=== PATIENT | female | born 1930 | race Caucasian/White ===

== ENCOUNTER → 2017-08-02 | Outpatient (CLI) | payer MEDICARE, BC ==
--- NOTE | 2017-08-02 15:20 | XR ---
EXAMINATION TYPE: XR ankle complete RT DATE OF EXAM: 08/02/2017 COMPARISON: NONE HISTORY: Pain, swelling, bruising TECHNIQUE: Three-view right ankle FINDINGS: Soft tissue swelling is over the medial malleolus. Ankle mortise appears intact. No displac ed fractures are identified. Plantar and Achilles tendon calcaneal heel spurs are present. IMPRESSION: 1. Soft tissue swelling medial malleolus. 2. Calcaneal heel spurs. 3. Follow-up exam can be performed 7-10 days from acute trauma for continued pain.
== END | disposition home or self-care (01) ==
LOC: RADXRMAIN 14:44
PROVIDERS: ATTEND Internal Medicine Geriatric Medicine
DX: M77.31 Calcaneal spur, right foot (principal); M79.89 Other specified soft tissue disorders

== ENCOUNTER 2019-03-31 09:52 | Emergency (ER) | payer MEDICARE, BC ==
[2019-03-31 10:03] VITALS: PULSE 60; RESP 18
[2019-03-31 10:25] LABS: Basophils % (A) 0 %; Eosinophils # (A) 0.2 k/uL (0-0.7); Eosinophils % (A) 1 %; HCT 39.5 % (34.0-46.0); Lymphocytes # (A) 0.8 k/uL (1.0-4.8); Lymphocytes % (A) 5 %; MCH 30.5 pg (25.0-35.0); MCV 92.3 fL (80.0-100.0); Mean Platelet Volume 7.2; Monocytes # (A) 0.9 k/uL (0-1.0); Monocytes % (A) 5 %; Neutrophils # (A) 14.3 k/uL (1.3-7.7); Neutrophils % (A) 87 %; Platelet Count 201 k/uL (150-450); RBC 4.28 m/uL (3.80-5.40); RDW 13.6 % (11.5-15.5); WBC 16.4 k/uL (3.8-10.6)
--- NOTE | 2019-03-31 10:30 | ED ---
General Adult HPI - General Chief complaint: Extremity Problem,Nontraumatic Stated complaint: RT HIP PAIN Time Seen by Provider: 03/31/19 10:03 Source: patient, RN notes reviewed, old records reviewed Mode of arrival: EMS Limitations: physical limitation - History of Present Illness Initial comments: 88-year-old female presenting for evaluation of right buttock pain and low back pain and pain shooting into her right leg. Patient states she was quite active 2 days prior with more walking than usual. She denies any specific injury but states she did develop some worsening pain after overuse. This pain has persisted for the past 24 hours. Worse with movement of the right leg worse with standing. She has no previous history of chronic back pain. No fever or chills. Denies any bowel incontinence denies urinary retention or urinary incontinence. Patient denies any symptoms below the knee. No numbness or tingling to the right extremity. Denies hematuria or dysuria denies flank pain. - Related Data Home Medications Medication Instructions Recorded Confirmed Albuterol Sulfate [Ventolin HFA] 1 puff INHALATION RT-QID PRN 09/23/14 03/31/19 Oxybutynin Chloride [Oxybutynin 10 mg PO DAILY 09/23/14 03/31/19 Chloride ER] Albuterol Nebulized [Ventolin 2.5 mg INHALATION RT-Q6H PRN 03/31/19 03/31/19 Nebulized] Atenolol [Tenormin] 50 mg PO DAILY 03/31/19 03/31/19 Previous Rx's Medication Instructions Recorded HYDROcodone/APAP 5-325MG [[place] 1 tab PO Q6HR PRN #12 tab 03/31/19 5-325] Nitrofurantoin Monohyd/M-Cryst 100 mg PO Q12HR #20 cap 03/31/19 [Macrobid] methylPREDNISolone Dose Pack 4 mg PO DIRECTED #21 package 03/31/19 [Medrol Dose Pack] Allergies Allergy/AdvReac Type Severity Reaction Status Date / Time Egg Derived Allergy Rash/Hives Verified 03/31/19 10:26 gabapentin Allergy Rash/Hives Verified 03/31/19 10:26 Penicillins Allergy Rash/Hives Verified 03/31/19 10:26 shellfish derived Allergy Chest Pain Verified 03/31/19 10:26 sulfamethoxazole Allergy Rash/Hives Verified 03/31/19 10:26 [From Bactrim] trimethoprim [From Bactrim] Allergy Rash/Hives Verified 03/31/19 10:26 Review of Systems ROS Statement: Those systems with pertinent positive or pertinent negative responses have been documented in the HPI. ROS Other: All systems not noted in ROS Statement are negative. Past Medical History Past Medical History: Asthma, CVA/TIA, GERD/Reflux, Hypertension, Pneumonia Additional Past Medical History / Comment(s): , History of Any Multi-Drug Resistant Organisms: None Reported Past Surgical History: Cholecystectomy, Hysterectomy Additional Past Surgical History / Comment(s): HAS CHRONIC ULCERATION IN BLADDER, colonoscopy 2006 biopsy for rectal bleed Past Anesthesia/Blood Transfusion Reactions: No Reported Reaction Past Psychological History: No Psychological Hx Reported Smoking Status: Never smoker Past Alcohol Use History: None Reported Past Drug Use History: None Reported General Exam Limitations: physical limitation General appearance: alert, in no apparent distress Head exam: Present: atraumatic, normocephalic Eye exam: Present: normal appearance, PERRL ENT exam: Present: normal exam Neck exam: Present: normal inspection. Absent: tenderness, meningismus Respiratory exam: Present: normal lung sounds bilaterally. Absent: respiratory distress, wheezes Cardiovascular Exam: Present: regular rate, normal rhythm GI/Abdominal exam: Present: soft. Absent: distended, tenderness, guarding, rebound Extremities exam: Present: normal inspection, other (DP and PT pulse 2+). Absent: pedal edema, calf tenderness Back exam: Present: normal inspection, paraspinal tenderness (Right lumbar paraspinal tenderness). Absent: vertebral tenderness Neurological exam: Present: alert, CN II-XII intact. Absent: motor sensory deficit Skin exam: Present: warm, dry, intact, normal color. Absent: rash, cyanosis, diaphoretic Course Vital Signs 03/31/19 09:55 Temperature 98.0 F Pulse Rate 60 Respiratory 18 Rate Blood Pressure 92/65 O2 Sat by Pulse 91 L Oximetry Medical Decision Making - Medical Decision Making 88-year-old female presents with low back pain and right hip pain status post overuse and long walk. Patient's symptoms are consistent with sciatic pain with pain shooting down her right leg. She has no alarming features on history or physical exam. X-rays are obtained, consistent with arthritis, disc height is maintained, no acute fracture or subluxation the lumbars sacral spine. Hip x- ray is negative for any acute bony abnormality. Patient has a normal pulse exam. Abdominal exam is unremarkable. Laboratory studies were obtained there is leukocytosis with a white blood cell count 16.4 hemoglobin stable creatinine 1.16 which is mildly elevated. Patient's given fentanyl by EMS prior to arrival, given IV fluids and Toradol in the emergency department. She does have significant improvement in her pain. Urinalysis is consistent with urinary tract infection, greater than 182 white cells and many bacteria. Urine culture will be obtained patient will be started on antibiotics for cystitis and urinary tract infection. Patient is feeling better and eager for discharge. She has an appointment on Tuesday which is 2 days from now with her primary care physician. She will be present with worsening or changing symptoms. - Lab Data Result diagrams: 03/31/19 10:13 03/31/19 10:13 Lab Results 03/31/19 03/31/19 03/31/19 Range/Units 10:13 10:13 11:49 WBC 16.4 H (3.8-10.6) k/uL RBC 4.28 (3.80-5.40) m/uL Hgb 13.0 (11.4-16.0) gm/dL Hct 39.5 (34.0-46.0) % MCV 92.3 (80.0-100.0) fL MCH 30.5 (25.0-35.0) pg MCHC 33.0 (31.0-37.0) g/dL RDW 13.6 (11.5-15.5) % Plt Count 201 (150-450) k/uL Neutrophils % 87 % Lymphocytes % 5 % Monocytes % 5 % Eosinophils % 1 % Basophils % 0 % Neutrophils # 14.3 H (1.3-7.7) k/uL Lymphocytes # 0.8 L (1.0-4.8) k/uL Monocytes # 0.9 (0-1.0) k/uL Eosinophils # 0.2 (0-0.7) k/uL Basophils # 0.0 (0-0.2) k/uL Sodium 138 (137-145) mmol/L Potassium 4.2 (3.5-5.1) mmol/L Chloride 105 (98-107) mmol/L Carbon Dioxide 24 (22-30) mmol/L Anion Gap 9 mmol/L BUN 22 H (7-17) mg/dL Creatinine 1.16 H (0.52-1.04) mg/dL Est GFR (CKD-EPI)AfAm 48 (>60 ml/min/1.73 sqM) Est GFR (CKD-EPI)NonAf 42 (>60 ml/min/1.73 sqM) Glucose 112 H (74-99) mg/dL Calcium 9.2 (8.4-10.2) mg/dL Total Bilirubin 1.4 H (0.2-1.3) mg/dL AST 21 (14-36) U/L ALT 25 (9-52) U/L Alkaline Phosphatase 79 (38-126) U/L Total Protein 6.7 (6.3-8.2) g/dL Albumin 3.6 (3.5-5.0) g/dL Urine Color Yellow Urine Appearance Cloudy H (Clear) Urine pH 6.0 (5.0-8.0) Ur Specific Mcdonald 1.016 (1.001-1.035) Urine Protein 1+ H (Negative) Urine Glucose (UA) Negative (Negative) Urine Ketones 1+ H (Negative) Urine Blood Small H (Negative) Urine Nitrite Negative (Negative) Urine Bilirubin Negative (Negative) Urine Urobilinogen <2.0 (<2.0) mg/dL Ur Leukocyte Esterase Large H (Negative) Urine RBC 4 (0-5) /hpf Urine WBC >182 H (0-5) /hpf Urine WBC Clumps Many H (None) /hpf Ur Squamous Epith Cells 1 (0-4) /hpf Amorphous Sediment Rare H (None) /hpf Urine Bacteria Many H (None) /hpf Hyaline Casts 4 H (0-2) /lpf Urine Mucus Rare H (None) /hpf Disposition Clinical Impression: Sciatica, UTI (urinary tract infection) Disposition: HOME SELF-CARE Condition: Good Instructions (If sedation given, give patient instructions): Sciatica (ED), Lumbar Radiculopathy (ED), Lower Back Exercises (ED), Urinary Tract Infection in Women (ED) Prescriptions: Nitrofurantoin Monohyd/M-Cryst [Macrobid] 100 mg PO Q12HR #20 cap methylPREDNISolone Dose Pack [Medrol Dose Pack] 4 mg PO DIRECTED #21 package HYDROcodone/APAP 5-325MG [[place] 5-325] 1 tab PO Q6HR PRN #12 tab PRN Reason: Pain Is patient prescribed a controlled substance at d/c from ED?: No Referrals: Samuel Bagley MD [Primary Care Provider] - 1-2 days Time of Disposition: 12:35
[2019-03-31 10:33] LABS: Albumin 3.6 g/dL (3.5-5.0); Calcium 9.2 mg/dL (8.4-10.2); Potassium 4.2 mmol/L (3.5-5.1); Total Bilirubin 1.4 mg/dL (0.2-1.3); Total Protein 6.7 g/dL (6.3-8.2)
--- NOTE | 2019-03-31 10:46 | XR ---
EXAMINATION TYPE: XR Hip Complete RT , 2 VIEWS DATE OF EXAM ORDERED: 03/31/2019 HISTORY: Pain. COMPARISON: None. FINDINGS: There are mild degenerative changes present within the hip. There is evidence of enthesopa thy arising from the iliac crest. No fracture or dislocation is seen. IMPRESSION: 1. NO ACUTE OSSEOUS ABNORMALITY. 2. DEGENERATIVE CHANGE.
[2019-03-31] MEDS ORDERED: KETOROLAC 30 MG/ML 1 ML VIAL IVP STA (10:47)
--- NOTE | 2019-03-31 10:48 | XR ---
EXAMINATION TYPE: XR lumbosacral spine min 4V , 5 VIEWS DATE OF EXAM ORDERED: 03/31/2019 HISTORY: Pain. COMPARISON: None. FINDINGS: There is a mild dextroscoliosis. Vertebral body height is maintained. There is a degenerative grade 1 spondylolisthesis of L5 on S1. N o fractures are identified. This hypertrophic spondylosis present. This is most marked at T11-12, L1- 2 and L2-3. There is mild, diffuse facet arthropathy. The pedicles are intact. There is very mild spo ndylosis deformans. IMPRESSION: 1. NO ACUTE OSSEOUS LESION. 2. MODERATE DEGENERATIVE CHANGE.
[2019-03-31] MEDS ORDERED: SODIUM CHLORIDE 0.9% 500 ML 500 ML IV ONE (10:53)
[2019-03-31 12:58] LABS: Amorphous Sediment,Urine Rare /hpf; Appearance,Urine Cloudy (Clear); Bacteria,Urine Many /hpf; Bilirubin,Urine Negative (Negative); Blood,Urine Small (Negative); Color,Urine Yellow; Glucose,Urine (UA) Negative (Negative); Hyaline Casts,Urine 4 /lpf (0-2); Ketones,Urine 1+ (Negative); Leukocyte Esterase,Urine Large (Negative); Mucus,Urine Rare /hpf; Nitrite,Urine Negative (Negative); Protein,Urine 1+ (Negative); RBC,Urine 4 /hpf (0-5); Specific Gravity,Urine 1.016 (1.001-1.035); Squamous Epithelial Cell,Urine 1 /hpf (0-4); Urobilinogen,Urine <2.0 mg/dL (<2.0); WBC,Urine >182 /hpf (0-5)
[2019-03-31 13:11] VITALS: BP 122/57
[2019-03-31 13:24] VITALS: TEMP 98.2
== END 2019-03-31 13:23 | disposition home or self-care (01) ==
LOC: EC 09:52
DX: N39.0 Urinary tract infection, site not specified (principal); M54.41 Lumbago with sciatica, right side; J45.909 Unspecified asthma, uncomplicated; I10 Essential (primary) hypertension; Z86.73 Personal history of transient ischemic attack (TIA), and cerebral infarction without residual deficits; Z79.899 Other long term (current) drug therapy; Z88.0 Allergy status to penicillin; Z91.012 Allergy to eggs; Z91.013 Allergy to seafood; Z88.1 Allergy status to other antibiotic agents; Z88.2 Allergy status to sulfonamides; Z88.8 Allergy status to other drugs, medicaments and biological substances; Z90.710 Acquired absence of both cervix and uterus
CPT/HCPCS: 36415; 80053; 85025; 81001; 87086; 72110; 73502; 99284; 96374; 96361; J1885; 87077; 87186

== ENCOUNTER 2019-04-02 14:13 | Inpatient (IN) | payer MEDICARE, BC ==
[2019-04-02] MEDS ORDERED: IPRATROPIUM 0.5 MG/2.5 ML NEBU INHALATION STA (14:30)
[2019-04-02] MEDS ORDERED: ALBUTEROL NEBULIZED 2.5 MG/3 ML INHALATION STA (14:30)
[2019-04-02] MEDS ORDERED: SODIUM CHLORIDE 0.9% 500 ML 500 ML IV STA (14:30)
[2019-04-02] MEDS ORDERED: AZITHROMYCIN 500 MG in SODIUM CHLORIDE 0.9% 250 ML IVPB STA (14:30)
[2019-04-02] MEDS ORDERED: SODIUM CHLORIDE 0.9% 1,000 ML IV STA (14:30)
--- NOTE | 2019-04-02 14:31 | ED ---
SOB HPI - General Chief Complaint: Shortness of Breath Stated Complaint: SOB Time Seen by Provider: 04/02/19 14:21 Source: patient, RN notes reviewed, old records reviewed Mode of arrival: wheelchair Limitations: no limitations - History of Present Illness Initial Comments: This is an 88-year-old female the ER for evaluation presents today for evaluatio n regards to shortness of breath. Patient does have history of shortness of breath difficulty breathing here in the ER 3 days ago for same she does have strong history of asthma. Patient was seen by primary care earlier in the day and urged to come to the ER for evaluation. Patient denies pain or chest pain. No fever or congestion. She does admit to increased cough. Increased shortness of breath. MD Complaint: shortness of breath, cough -: days(s) (3) Severity: mild Severity scale (1-10): 2 Consistency: constant Improves With: oxygen, bronchodilators Worsens With: exertion, movement Known History Of: COPD, asthma Context: recent URI Associated Symptoms: pain with inspiration, cough - Related Data Home Medications Medication Instructions Recorded Confirmed Albuterol Sulfate [Ventolin HFA] 1 puff INHALATION RT-QID PRN 09/23/14 04/02/19 Oxybutynin Chloride [Oxybutynin 10 mg PO DAILY 09/23/14 04/02/19 Chloride ER] Albuterol Nebulized [Ventolin 2.5 mg INHALATION RT-Q6H PRN 03/31/19 04/02/19 Nebulized] Atenolol [Tenormin] 50 mg PO DAILY 03/31/19 04/02/19 Ergocalciferol (Vitamin D2) 50,000 unit PO Q14D 04/02/19 04/02/19 [Drisdol] Omeprazole 20 mg PO DAILY 04/02/19 04/02/19 methylPREDNISolone Dose Pack See Taper PO DIRECTED 04/02/19 04/02/19 [Medrol Dose Pack] Previous Rx's Medication Instructions Recorded HYDROcodone/APAP 5-325MG [[place] 1 tab PO Q6HR PRN #12 tab 03/31/19 5-325] Nitrofurantoin Monohyd/M-Cryst 100 mg PO Q12HR #20 cap 03/31/19 [Macrobid] Allergies Allergy/AdvReac Type Severity Reaction Status Date / Time Egg Derived Allergy Rash/Hives Verified 04/02/19 14:25 gabapentin Allergy Rash/Hives Verified 04/02/19 14:25 peanut Allergy Rash/Hives Verified 04/02/19 15:15 Penicillins Allergy Rash/Hives Verified 04/02/19 14:25 shellfish derived Allergy Chest Pain Verified 04/02/19 14:25 sulfamethoxazole Allergy Rash/Hives Verified 04/02/19 14:25 [From Bactrim] tomato Allergy Rash/Hives Verified 04/02/19 15:15 trimethoprim [From Bactrim] Allergy Rash/Hives Verified 04/02/19 14:25 Review of Systems ROS Statement: Those systems with pertinent positive or pertinent negative responses have been documented in the HPI. ROS Other: All systems not noted in ROS Statement are negative. Past Medical History Past Medical History: Asthma, CVA/TIA, GERD/Reflux, Hypertension, Pneumonia Additional Past Medical History / Comment(s): , History of Any Multi-Drug Resistant Organisms: None Reported Past Surgical History: Cholecystectomy, Hysterectomy Additional Past Surgical History / Comment(s): HAS CHRONIC ULCERATION IN BLADDER, colonoscopy 2006 biopsy for rectal bleed Past Anesthesia/Blood Transfusion Reactions: No Reported Reaction Past Psychological History: No Psychological Hx Reported Smoking Status: Never smoker Past Alcohol Use History: None Reported Past Drug Use History: None Reported General Exam Limitations: no limitations General appearance: alert, in no apparent distress Head exam: Present: atraumatic, normocephalic, normal inspection Eye exam: Present: normal appearance, PERRL, EOMI. Absent: scleral icterus, conjunctival injection, periorbital swelling ENT exam: Present: normal exam, mucous membranes moist Neck exam: Present: normal inspection. Absent: tenderness, meningismus, lymphadenopathy Respiratory exam: Present: normal lung sounds bilaterally, wheezes, decreased breath sounds, prolonged expiratory. Absent: respiratory distress, rales, rhonchi, stridor Cardiovascular Exam: Present: regular rate, normal rhythm, normal heart sounds. Absent: systolic murmur, diastolic murmur, rubs, gallop, clicks GI/Abdominal exam: Present: soft, normal bowel sounds. Absent: distended, tenderness, guarding, rebound, rigid Extremities exam: Present: normal inspection, full ROM, normal capillary refill. Absent: tenderness, pedal edema, joint swelling, calf tenderness Back exam: Present: normal inspection Neurological exam: Present: alert, oriented X3, CN II-XII intact Psychiatric exam: Present: normal affect, normal mood Skin exam: Present: warm, dry, intact, normal color. Absent: rash Course Vital Signs 04/02/19 04/02/19 04/02/19 14:22 15:34 15:47 Temperature 98.4 F Pulse Rate 60 60 56 L Respiratory 20 Rate Blood Pressure 137/62 O2 Sat by Pulse 90 L Oximetry 04/02/19 04/02/19 04/02/19 16:03 16:19 16:47 Temperature Pulse Rate 59 L 68 69 Respiratory 24 20 Rate Blood Pressure 125/54 105/58 O2 Sat by Pulse 97 90 L Oximetry - Reevaluation(s) Reevaluation #1: 04/02/19 16:49 Medical record reviewed Reevaluation #2: 04/02/19 16:[address] Bagley regarding transfer patient for inpatient admission. Reevaluation #3: 04/02/19 16:49 Patient placed on heparin to elevated d-dimer hypoxia, will await computed tomography scan the morning secondary to inability to get CAT scan increased renal function Medical Decision Making - Lab Data Result diagrams: 04/02/19 15:10 04/02/19 15:10 Lab Results 04/02/19 04/02/19 04/02/19 Range/Units 15:10 15:10 15:10 WBC 17.6 H (3.8-10.6) k/uL RBC 4.46 (3.80-5.40) m/uL Hgb 13.2 (11.4-16.0) gm/dL Hct 42.0 (34.0-46.0) % MCV 94.1 (80.0-100.0) fL MCH 29.5 (25.0-35.0) pg MCHC 31.4 (31.0-37.0) g/dL RDW 13.6 (11.5-15.5) % Plt Count 279 (150-450) k/uL Neutrophils % 85 % Lymphocytes % 6 % Monocytes % 6 % Eosinophils % 1 % Basophils % 0 % Neutrophils # 15.0 H (1.3-7.7) k/uL Lymphocytes # 1.0 (1.0-4.8) k/uL Monocytes # 1.1 H (0-1.0) k/uL Eosinophils # 0.1 (0-0.7) k/uL Basophils # 0.1 (0-0.2) k/uL PT 9.9 (9.0-12.0) sec INR 0.9 (<1.2) APTT 23.2 (22.0-30.0) sec D-Dimer 2.10 H (<0.60) mg/L FEU Sodium 138 (137-145) mmol/L Potassium 4.1 (3.5-5.1) mmol/L Chloride 102 (98-107) mmol/L Carbon Dioxide 25 (22-30) mmol/L Anion Gap 11 mmol/L BUN 28 H (7-17) mg/dL Creatinine 1.35 H (0.52-1.04) mg/dL Est GFR (CKD-EPI)AfAm 40 (>60 ml/min/1.73 sqM) Est GFR (CKD-EPI)NonAf 35 (>60 ml/min/1.73 sqM) Glucose 111 H (74-99) mg/dL Calcium 10.3 H (8.4-10.2) mg/dL Magnesium 2.0 (1.6-2.3) mg/dL Total Bilirubin 0.6 (0.2-1.3) mg/dL AST 25 (14-36) U/L ALT 26 (9-52) U/L Alkaline Phosphatase 106 (38-126) U/L Troponin I (0.000-0.034) ng/mL NT-Pro-B Natriuret Pep pg/mL Total Protein 7.2 (6.3-8.2) g/dL Albumin 4.1 (3.5-5.0) g/dL 04/02/19 04/02/19 Range/Units 15:10 15:10 WBC (3.8-10.6) k/uL RBC (3.80-5.40) m/uL Hgb (11.4-16.0) gm/dL Hct (34.0-46.0) % MCV (80.0-100.0) fL MCH (25.0-35.0) pg MCHC (31.0-37.0) g/dL RDW (11.5-15.5) % Plt Count (150-450) k/uL Neutrophils % % Lymphocytes % % Monocytes % % Eosinophils % % Basophils % % Neutrophils # (1.3-7.7) k/uL Lymphocytes # (1.0-4.8) k/uL Monocytes # (0-1.0) k/uL Eosinophils # (0-0.7) k/uL Basophils # (0-0.2) k/uL PT (9.0-12.0) sec INR (<1.2) APTT (22.0-30.0) sec D-Dimer (<0.60) mg/L FEU Sodium (137-145) mmol/L Potassium (3.5-5.1) mmol/L Chloride (98-107) mmol/L Carbon Dioxide (22-30) mmol/L Anion Gap mmol/L BUN (7-17) mg/dL Creatinine (0.52-1.04) mg/dL Est GFR (CKD-EPI)AfAm (>60 ml/min/1.73 sqM) Est GFR (CKD-EPI)NonAf (>60 ml/min/1.73 sqM) Glucose (74-99) mg/dL Calcium (8.4-10.2) mg/dL Magnesium (1.6-2.3) mg/dL Total Bilirubin (0.2-1.3) mg/dL AST (14-36) U/L ALT (9-52) U/L Alkaline Phosphatase (38-126) U/L Troponin I <0.012 (0.000-0.034) ng/mL NT-Pro-B Natriuret Pep 2150 pg/mL Total Protein (6.3-8.2) g/dL Albumin (3.5-5.0) g/dL - EKG Data -: EKG Interpreted by Me (EKG shows sinus rhythm at 63, PA 140, QRS 96, QTc 407) Critical Care Time Critical Care Time: Yes Total Critical Care Time: 31 Disposition Clinical Impression: Acute exacerbation of chronic obstructive pulmonary disease (COPD), Hypoxia Disposition: ADMITTED IP TO THIS HOSP Condition: Fair Is patient prescribed a controlled substance at d/c from ED?: No Referrals: Samuel Bagley MD [Primary Care Provider] - 1-2 days
[2019-04-02 15:32] LABS: Basophils # (A) 0.1 k/uL (0-0.2); Basophils % (A) 0 %; Eosinophils # (A) 0.1 k/uL (0-0.7); Eosinophils % (A) 1 %; HGB 13.2 gm/dL (11.4-16.0); Lymphocytes % (A) 6 %; MCH 29.5 pg (25.0-35.0); MCHC 31.4 g/dL (31.0-37.0); MCV 94.1 fL (80.0-100.0); Mean Platelet Volume 7.5; Monocytes # (A) 1.1 k/uL (0-1.0); Monocytes % (A) 6 %; Neutrophils % (A) 85 %; Platelet Count 279 k/uL (150-450); RBC 4.46 m/uL (3.80-5.40); RDW 13.6 % (11.5-15.5); WBC 17.6 k/uL (3.8-10.6)
[2019-04-02 15:40] LABS: Potassium 4.1 mmol/L (3.5-5.1)
[2019-04-02 15:41] LABS: Albumin 4.1 g/dL (3.5-5.0); Calcium 10.3 mg/dL (8.4-10.2); Total Bilirubin 0.6 mg/dL (0.2-1.3); Total Protein 7.2 g/dL (6.3-8.2)
[2019-04-02 15:45] LABS: INR 0.9 (<1.2); Partial Thromboplastin Time 23.2 sec (22.0-30.0); Prothrombin Time 9.9 sec (9.0-12.0)
[2019-04-02 15:49] LABS: D-Dimer 2.1 mg/L FEU (<0.60)
[2019-04-02] MEDS ORDERED: methylPREDNISolone SOD SUCCI 125 MG/2 ML VIAL IV STA (16:09)
[2019-04-02] MEDS ORDERED: HEPARIN SODIUM,PORCINE 10,000 UNIT/ML 1 ML VIAL IV ONE (16:11)
[2019-04-02] MEDS ORDERED: HEPARIN SODIUM,PORCINE 5,000 UNIT/ML 1 ML VIAL IV PRN (16:11)
--- NOTE | 2019-04-02 16:57 | XR ---
EXAMINATION TYPE: XR chest 2V DATE OF EXAM: 04/02/2019 COMPARISON: 09/22/2014 HISTORY: Asthma TECHNIQUE: Frontal and lateral views of the chest are obtained. FINDINGS: Heart is normal. There is coarsening of interstitial pulmonary markings. There is no heart failure. Costophrenic angles are fairly clear. Bony thorax is intact. IMPRESSION: Minimal pulmonary fibrotic changes that are increased compared to old exam. Normal heart .
[2019-04-02] MEDS: HEPARIN SOD,PORK IN 0.45% NACL 25,000 UNIT in 0.45% NACL 1 250ML.BAG IV SCH (18:15)
--- NOTE | 2019-04-02 18:17 | NM ---
EXAMINATION TYPE: NM pul vent and perfuse DATE OF EXAM: 04/02/2019 COMPARISON: NONE HISTORY: TECHNIQUE: Utilizing inhalation of 65.2 mCi Tc 99m DTPA aerosol and intravenous injection of 4.93 mC i of Tc 99m MAA, ventilation and perfusion images are acquired post injection in multiple projections . FINDINGS: There are extensive matching ventilation and perfusion defects involving the lower lobes and to a les ser extent the upper lobes. Perfusion appears slightly better than the ventilation abnormalities in t he upper lobes. IMPRESSION: There is evidence of severe bilateral airway disease. There is intermediate probability of pulmonary embolism.
--- NOTE | 2019-04-02 19:10 | US ---
EXAMINATION TYPE: US venous doppler duplex LE BI DATE OF EXAM: 04/02/2019 6:51 PM COMPARISON: NONE CLINICAL HISTORY: Pain. Pain SIDE PERFORMED: Bilateral TECHNIQUE: The lower extremity deep venous system is examined utilizing real time linear array sonog amauri with graded compression, doppler sonography and color-flow sonography. VESSELS IMAGED: External Iliac Vein (EIV) Common Femoral Vein Deep Femoral Vein Greater Saphenous Vein * Femoral Vein Popliteal Vein Small Saphenous Vein * Proximal Calf Veins (* superficial vessels) Right Leg: Negative for DVT Left Leg: Negative for DVT No evidence of DVT bilateral legs. IMPRESSION: Normal bilateral leg duplex venous sonogram.
[2019-04-02] MEDS: IPRATROPIUM-ALBUTEROL 3 ML NEB INHALATION SCH (20:19)
[2019-04-02] MEDS: guaiFENesin 600 MG TABLET.ER PO SCH (21:36)
[2019-04-02] MEDS: guaiFENesin SYRUP 100MG/5ML 200 MG/10 ML CUP PO PRN (21:36)
[2019-04-02] MEDS: SODIUM CHLORIDE 0.9% 1,000 ML IV SCH (21:38)
[2019-04-02 22:36] VITALS: BMI 28.3
[2019-04-02] MEDS: ALBUTEROL NEBULIZED 2.5 MG/3 ML INHALATION PRN (23:57)
[2019-04-03] MEDS: methylPREDNISolone SOD SUCCI 125 MG/2 ML VIAL IV SCH ×4 (00:55→17:25)
[2019-04-03] MEDS: ALBUTEROL NEBULIZED 2.5 MG/3 ML INHALATION PRN ×2 (03:06→05:08)
[2019-04-03] MEDS: guaiFENesin SYRUP 100MG/5ML 200 MG/10 ML CUP PO PRN ×4 (03:25→21:27)
[2019-04-03] MEDS: HYDROcodone/APAP 5-325MG 1 EACH TAB PO PRN ×3 (05:34→17:25)
[2019-04-03 05:55] LABS: Glucose,Whole Blood 130 mg/dL (75-99)
[2019-04-03] MEDS: INSULIN ASPART (NovoLOG) 100 UNIT/ML VIAL SQ SCH ×4 (05:58→21:27)
[2019-04-03 06:37] LABS: Basophils % (A) 0 %; Eosinophils % (A) 0 %; HCT 35.7 % (34.0-46.0); HGB 11.5 gm/dL (11.4-16.0); Lymphocytes # (A) 0.6 k/uL (1.0-4.8); Lymphocytes % (A) 5 %; MCH 29.9 pg (25.0-35.0); MCHC 32.1 g/dL (31.0-37.0); Mean Platelet Volume 7.9; Monocytes # (A) 0.4 k/uL (0-1.0); Monocytes % (A) 4 %; Neutrophils # (A) 10.4 k/uL (1.3-7.7); Neutrophils % (A) 90 %; Platelet Count 273 k/uL (150-450); RBC 3.84 m/uL (3.80-5.40); RDW 13.8 % (11.5-15.5); WBC 11.6 k/uL (3.8-10.6)
[2019-04-03] MEDS: PANTOPRAZOLE 40 MG TABLET PO SCH (06:42)
[2019-04-03 06:47] LABS: Partial Thromboplastin Time 61.7 sec (22.0-30.0); Prothrombin Time 10.9 sec (9.0-12.0)
[2019-04-03] MEDS: IPRATROPIUM-ALBUTEROL 3 ML NEB INHALATION SCH ×5 (07:52→19:25)
[2019-04-03] MEDS: ATENOLOL 50 MG TAB PO SCH (08:39)
[2019-04-03] MEDS: guaiFENesin 600 MG TABLET.ER PO SCH ×2 (08:39→21:27)
[2019-04-03 08:40] LABS: Albumin 3.2 g/dL (3.5-5.0); Calcium 9.1 mg/dL (8.4-10.2); Potassium 4.1 mmol/L (3.5-5.1); Total Bilirubin 0.4 mg/dL (0.2-1.3); Total Protein 5.8 g/dL (6.3-8.2)
[2019-04-03] MEDS: OXYBUTYNIN 10 MG TAB.ER.24 PO SCH (08:41)
[2019-04-03] MEDS: SODIUM CHLORIDE 0.9% 1,000 ML IV SCH ×2 (11:39→13:51)
[2019-04-03 11:49] LABS: Glucose,Whole Blood 112 mg/dL (75-99)
[2019-04-03] MEDS ORDERED: SENNOSIDES 8.6 MG TAB PO PRN (11:52)
[2019-04-03] MEDS: NITROFURANTOIN MONOHYD/M-CRYST 100 MG CAP PO SCH ×2 (11:55→12:13)
[2019-04-03] MEDS: LORATADINE 10 MG TAB PO SCH (11:58)
--- NOTE | 2019-04-03 13:55 | P.HPIM ---
History of Present Illness H&P Date: 04/03/19 Chief Complaint: Difficulty breathing This is an 88-year-old female patient of Dr. 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 Patient states that she has seen Dr. Denson in the past for about 2 years but is not currently following with any pulmonary doctor. Patient states for the past several days she was feeling tired exhausted having increasing shortness of breath and cough. Yesterday she states her cough was so severe she couldn't catch her breath and she usually does not have coughing with an asthma attack. She denies having any fever but states she has had chills. She complains of nausea without vomiting. She states she has been using her nebulizer up to 6 times per day without any improvement. She does not have home oxygen. She was recently seen in the emergency room on March 31 due to sciatica and urinary tract infection and was discharged home on Ellinger, Medrol Dosepak and Macrodantin. She came into [facility] emergency center for evaluation. She was afebrile, heart rate in the 60s, blood pressure 137/62, pulse ox 90% on room air. White count 17.6, BUN 20 creatinine 1.34, blood sugar 111, d-dimer was elevated at 2.1. Electrolytes were within normal limits, liver function tests normal. ProBNP 2150, troponin negative. Chest x-ray reveals minimal pulmonary fibrotic changes that are increased compared to old exam. Normal heart. V/Q scan shows evidence of severe bilateral airspace disease. Intermediate probability of pulmonary embolism. Venous ultrasound of the lower extremity is negative for DVT. Patient was started on antibiotics, nebulizer treatments, heparin drip and admitted to thecardiac stepdown unit. Pulmonary consult requested. Patient will be transferred to [facility] floor. Review of Systems Constitutional: Reports chills, Reports fatigue, Denies anorexia, Denies fever, Denies lethargy, Denies malaise, Denies poor appetite, Denies weight loss Ears, nose, mouth and throat: Denies dental pain, Denies dysphagia, Denies mouth pain, Denies nasal congestion, Denies nasal discharge, Denies vertigo Cardiovascular: Reports dyspnea on exertion, Denies edema, Denies leg edema, Denies lightheadedness, Denies syncope Respiratory: Reports cough, Reports dyspnea, Reports wheezing, Denies cough with sputum, Denies excessive sputum, Denies hemoptysis, Denies home oxygen Gastrointestinal: Denies abdominal pain, Denies diarrhea, Denies loss of appetite, Denies nausea, Denies vomiting Genitourinary: Denies dysuria, Denies hematuria, Denies urgency, Denies urinary frequency Musculoskeletal: Denies frequent falls, Denies gait dysfunction, Denies muscle weakness, Denies myalgias Integumentary: Denies wounds Neurological: Denies aphasia, Denies change in mentation, Denies change in speech, Denies gait dysfunction, Denies headaches, Denies seizures, Denies vertigo Psychiatric: Denies anxiety, Denies depression Past Medical History Past Medical History: Asthma, CVA/TIA, GERD/Reflux, Hypertension, Pneumonia Additional Past Medical History / Comment(s): , History of Any Multi-Drug Resistant Organisms: None Reported Past Surgical History: Cholecystectomy, Hysterectomy Additional Past Surgical History / Comment(s): HAS CHRONIC ULCERATION IN BLADDER, colonoscopy 2006 biopsy for rectal bleed Past Anesthesia/Blood Transfusion Reactions: No Reported Reaction Past Psychological History: No Psychological Hx Reported Smoking Status: Never smoker Past Alcohol Use History: Rare Additional Past Alcohol Use History / Comment(s): Patient is a lifelong nonsmoker. She denies any marijuana or street drug use. No alcohol use. She lives at home with her . Past Drug Use History: None Reported Additional Drug Use History / Comment(s): NONE - Past Family History Mother Family Medical History: Cancer Additional Family Medical History / Comment(s): Mother at age 64 from bowel cancer with history of coronary artery disease. Sister(s) Family Medical History: Cancer, Myocardial Infarction ([place]) Additional Family Medical History / Comment(s): Patient has 2 sisters one from pancreatic cancer at the age of 62 and one from coronary artery disease at age 64. Brother(s) Family Medical History: Cancer, Myocardial Infarction ([place]) Additional Family Medical History / Comment(s): Patient has 2 brothers and one at age 45 from coronary artery disease with massive myocardial infarction. One brother at age 89 from pancreatic cancer. Father Additional Family Medical History / Comment(s): Father at age 89 from coronary artery disease. Son(s) Additional Family Medical History / Comment(s): Patient has 2 sons and one at age 47 from scleroderma. One son is age 65 with obesity. Patient has one daughter age 68 with obesity. Medications and Allergies Home Medications Medication Instructions Recorded Confirmed Type Albuterol Sulfate [Ventolin HFA] 1 puff INHALATION RT-QID PRN 09/23/14 04/02/19 History Oxybutynin Chloride [Oxybutynin 10 mg PO DAILY 09/23/14 04/02/19 History Chloride ER] Albuterol Nebulized [Ventolin 2.5 mg INHALATION RT-Q6H PRN 03/31/19 04/02/19 Hi story Nebulized] Atenolol [Tenormin] 50 mg PO DAILY 03/31/19 04/02/19 History HYDROcodone/APAP 5-325MG [Ellinger 1 tab PO Q6HR PRN #12 tab 03/31/19 04/02/19 Rx 5-325] Nitrofurantoin Monohyd/M-Cryst 100 mg PO Q12HR #20 cap 03/31/19 04/02/19 Rx [Macrobid] Ergocalciferol (Vitamin D2) 50,000 unit PO Q14D 04/02/19 04/02/19 History [Drisdol] Omeprazole 20 mg PO DAILY 04/02/19 04/02/19 History methylPREDNISolone Dose Pack See Taper PO DIRECTED 04/02/19 04/02/19 History [Medrol Dose Pack] Allergies Allergy/AdvReac Type Severity Reaction Status Date / Time Egg Derived Allergy Rash/Hives Verified 04/02/19 14:25 gabapentin Allergy Rash/Hives Verified 04/02/19 14:25 peanut Allergy Rash/Hives Verified 04/02/19 15:15 Penicillins Allergy Rash/Hives Verified 04/02/19 14:25 shellfish derived Allergy Chest Pain Verified 04/02/19 14:25 sulfamethoxazole Allergy Rash/Hives Verified 04/02/19 14:25 [From Bactrim] tomato Allergy Rash/Hives Verified 04/02/19 15:15 trimethoprim [From Bactrim] Allergy Rash/Hives Verified 04/02/19 14:25 Physical Exam Vitals: Vital Signs Temp Pulse Pulse Resp BP BP Pulse Ox 04/03/19 11:08 63 95 04/03/19 08:15 64 04/03/19 08:00 98.3 F 68 22 143/75 94 L 04/03/19 07:52 68 04/03/19 05:18 64 04/03/19 05:08 68 04/03/19 03:34 98.3 F 71 22 133/67 96 04/03/19 03:22 68 04/03/19 03:06 72 04/03/19 00:45 99.6 F 69 18 133/63 96 04/03/19 00:08 68 04/02/19 23:59 65 04/02/19 21:00 20 04/02/19 20:22 63 04/02/19 20:00 98.2 F 72 18 136/58 96 04/02/19 19:00 98.1 F 63 18 131/60 93 L 04/02/19 18:18 68 20 122/64 95 04/02/19 16:47 69 20 105/58 90 L 04/02/19 16:19 68 04/02/19 16:03 59 L 24 125/54 97 04/02/19 15:47 56 L 04/02/19 15:34 60 04/02/19 14:22 98.4 F 60 20 137/62 90 L Intake and Output 04/02/19 04/03/19 04/03/19 22:59 06:59 14:59 Intake Total 240 Balance 240 Intake: Oral 240 Other: # Voids 2 Weight 78.5 kg Gen: This is a 88-year-old female. She is resting in bed and has frequent coughs she is able to speak in full sentences. HEENT: Head is atraumatic, normocephalic. Pupils equal, round. Sclerae is anicteric. NECK: Supple. No JVD. No lymphadenopathy. No thyromegaly. LUNGS: Inspiratory and expiratory wheezing throughout. Mild accessory muscle usage. Mild intercostal retractions. HEART: Regular rate and rhythm. No murmur. ABDOMEN: Soft. Bowel sounds are present. No masses. No tenderness. EXTREMITIES: No pedal edema. No calf tenderness. Dorsalis pedis +2 bilaterally. NEUROLOGICAL: Patient is awake, alert and oriented x3. Cranial nerves 2 through 12 are grossly intact. Results CBC & Chem 7: 04/03/19 06:22 04/03/19 06:22 Labs: Abnormal Lab Results - Last 24 Hours (Table) 04/02/19 04/02/19 04/02/19 Range/Units 15:10 15:10 15:10 WBC 17.6 H (3.8-10.6) k/uL Neutrophils # 15.0 H (1.3-7.7) k/uL Lymphocytes # (1.0-4.8) k/uL Monocytes # 1.1 H (0-1.0) k/uL APTT (22.0-30.0) sec D-Dimer 2.10 H (<0.60) mg/L FEU Chloride (98-107) mmol/L BUN 28 H (7-17) mg/dL Creatinine 1.35 H (0.52-1.04) mg/dL Glucose 111 H (74-99) mg/dL POC Glucose (mg/dL) (75-99) mg/dL Calcium 10.3 H (8.4-10.2) mg/dL Total Protein (6.3-8.2) g/dL Albumin (3.5-5.0) g/dL 04/02/19 04/03/19 04/03/19 Range/Units 23:33 05:54 06:22 WBC 11.6 H (3.8-10.6) k/uL Neutrophils # 10.4 H (1.3-7.7) k/uL Lymphocytes # 0.6 L (1.0-4.8) k/uL Monocytes # (0-1.0) k/uL APTT 47.2 H (22.0-30.0) sec D-Dimer (<0.60) mg/L FEU Chloride (98-107) mmol/L BUN (7-17) mg/dL Creatinine (0.52-1.04) mg/dL Glucose (74-99) mg/dL POC Glucose (mg/dL) 130 H (75-99) mg/dL Calcium (8.4-10.2) mg/dL Total Protein (6.3-8.2) g/dL Albumin (3.5-5.0) g/dL 04/03/19 04/03/19 Range/Units 06:22 06:22 WBC (3.8-10.6) k/uL Neutrophils # (1.3-7.7) k/uL Lymphocytes # (1.0-4.8) k/uL Monocytes # (0-1.0) k/uL APTT 61.7 H (22.0-30.0) sec D-Dimer (<0.60) mg/L FEU Chloride 108 H (98-107) mmol/L BUN 27 H (7-17) mg/dL Creatinine 1.15 H (0.52-1.04) mg/dL Glucose 127 H (74-99) mg/dL POC Glucose (mg/dL) (75-99) mg/dL Calcium (8.4-10.2) mg/dL Total Protein 5.8 L (6.3-8.2) g/dL Albumin 3.2 L (3.5-5.0) g/dL Thrombosis Risk Factor Assmnt - DVT/VTE Prophylaxis DVT/VTE Prophylaxis: Pharmacologic Prophylaxis ordered - Choose All That Apply Each Factor Represents 1 point: Abnormal pulmonary function (COPD), Obesity (BMI >25) Each Risk Factor Represents 3 Points: Age 75 years or older Thrombosis Risk Factor Assessment Total Risk Factor Score: 5 Thrombosis Risk Factor Assessment Level: High Risk Assessment and Plan Plan: 1. Acute asthma exacerbation, moderate persistent asthma. Continue DuoNeb treatments every 4 hours and as needed, azithromycin, ceftriaxone added, continue Pulmicort twice daily, Perforomist twice daily, Mucinex and Robitussin, Solu-Medrol 60 mg IV every 6 hours, Singulair 10 mg at bedtime, Claritin 10 mg daily. 2. Pulmonary embolism ruled out. Pulmonary consultation appreciated. Heparin drip discontinued. Patient will be transferred to Med[facility] floor. 3. Hypertension. Continue atenolol 50 mg daily. 4. Overactive bladder. Continue oxybutynin. 5. Recently diagnosed with urinary tract infection. Patient is covered with ceftriaxone. Macrodantin discontinued. 6. Sciatica. Patient is currently on Solu-Medrol and continue Ellinger as needed. 7. DVT prophylaxis. Heparin subcu. 8. GI prophylaxis. Protonix. 9. CODE STATUS: No code per patient wishes. Patient will be admitted to the hospital for a minimum of 2 night stay. Discharge plan: Most likely return home. PT and OT will be added. Impression and plan of care have been directed as dictated by the signing physician. Faina Michael nurse practitioner acting as scribe for signing physician.
[2019-04-03] MEDS: IPRATROPIUM-ALBUTEROL 3 ML NEB INHALATION PRN ×2 (13:57→21:52)
[2019-04-03] MEDS: HEPARIN SOD,PORK IN 0.45% NACL 25,000 UNIT in 0.45% NACL 1 250ML.BAG IV SCH (14:05)
--- NOTE | 2019-04-03 16:18 | P.CNPUL ---
History of Present Illness Consult date: 04/03/19 Requesting physician: Samuel Bagley Reason for consult: dyspnea Chief complaint: Elevated d-dimer, acute exacerbation of chronic bronchial asthma History of present illness: This 88-year-old white male patient of Dr. Bagley, with history of chronic bronchial asthma, who presented to the hospital on 04/02/2019 with complaints of shortness of breath, persistent coughing, voice hoarseness, chest tightness. Onset of symptoms started 2 weeks ago, and became progressively worse, patient did have some mild subjective chills, but no fevers, she felt exhausted, she was 7 a lot a persistent coughing, but not bringing up much sputum. She states [place] the mall [place] 2 hours, a few days ago, she thinks he may have overdone it, she had a exacerbation of her sciatica, which was being treated on an outpatient basis, and she was also found to have evidence of bladder infection for which she was started on antibiotics. Patient is a lifetime nonsmoker, she does not use home O2, she does use albuterol nebulized treatments and a Ventolin inhaler which she has been using quite frequently in the last 2 weeks, she's been having nightly bedtime symptoms with increased coughing and shortness of breath. Does have symptoms of GERD/reflux. She did see Dr. Hammond in the remote past for her asthma, but recently has been managed by Dr. Bagley. Chest x-ray, showed minimal pulmonary fibrotic changes, worsening of interstitial pulmonary markings. Patient was found to have elevated d-dimer at 2.10, did have elevated white blood cell count of 17.6, electrolytes were within normal limits, B1 was 28 and creatinine was 1.35, BNP was 2150, troponin was negative 1. VQ scan showed intermediate probability of pulmonary embolism, venous Dopplers of lower extremities was negative for DVT. She was started on heparin drip for intermediate probability of pulmonary embolism and we were asked to see the patient in consultation for acute exacerbation of severe persistent bronchial asthma Review of Systems All systems: negative Constitutional: Denies chills, Denies fever Eyes: denies blurred vision, denies pain Ears, nose, mouth and throat: Denies headache, Denies sore throat Cardiovascular: Denies chest pain, Denies shortness of breath Respiratory: Reports cough, Reports dyspnea, Reports wheezing Gastrointestinal: Denies abdominal pain, Denies diarrhea, Denies nausea, Denies vomiting Genitourinary: Denies dysuria, Denies hematuria Musculoskeletal: Denies myalgias Integumentary: Denies pruritus, Denies rash Neurological: Denies numbness, Denies weakness Psychiatric: Denies anxiety, Denies depression Endocrine: Denies fatigue, Denies weight change Past Medical History Past Medical History: Asthma, CVA/TIA, GERD/Reflux, Hypertension, Pneumonia Additional Past Medical History / Comment(s): , History of Any Multi-Drug Resistant Organisms: None Reported Past Surgical History: Cholecystectomy, Hysterectomy Additional Past Surgical History / Comment(s): HAS CHRONIC ULCERATION IN BLADDER, colonoscopy 2006 biopsy for rectal bleed Past Anesthesia/Blood Transfusion Reactions: No Reported Reaction Past Psychological History: No Psychological Hx Reported Smoking Status: Never smoker Past Alcohol Use History: Rare Additional Past Alcohol Use History / Comment(s): Patient is a lifelong nonsmoker. She denies any marijuana or street drug use. No alcohol use. She lives at home with her . Past Drug Use History: None Reported Additional Drug Use History / Comment(s): NONE - Past Family History Mother Family Medical History: Cancer Additional Family Medical History / Comment(s): Mother at age 64 from bowel cancer with history of coronary artery disease. Sister(s) Family Medical History: Cancer, Myocardial Infarction ([place]) Additional Family Medical History / Comment(s): Patient has 2 sisters one from pancreatic cancer at the age of 62 and one from coronary artery diseas e at age 64. Brother(s) Family Medical History: Cancer, Myocardial Infarction ([place]) Additional Family Medical History / Comment(s): Patient has 2 brothers and one at age 45 from coronary artery disease with massive myocardial infarction. One brother at age 89 from pancreatic cancer. Father Additional Family Medical History / Comment(s): Father at age 89 from coronary artery disease. Son(s) Additional Family Medical History / Comment(s): Patient has 2 sons and one at age 47 from scleroderma. One son is age 65 with obesity. Patient has one daughter age 68 with obesity. Medications and Allergies Home Medications Medication Instructions Recorded Confirmed Type Albuterol Sulfate [Ventolin HFA] 1 puff INHALATION RT-QID PRN 09/23/14 04/02/19 History Oxybutynin Chloride [Oxybutynin 10 mg PO DAILY 09/23/14 04/02/19 History Chloride ER] Albuterol Nebulized [Ventolin 2.5 mg INHALATION RT-Q6H PRN 03/31/19 04/02/19 History Nebulized] Atenolol [Tenormin] 50 mg PO DAILY 03/31/19 04/02/19 History HYDROcodone/APAP 5-325MG [Ellsworth 1 tab PO Q6HR PRN #12 tab 03/31/19 04/02/19 Rx 5-325] Nitrofurantoin Monohyd/M-Cryst 100 mg PO Q12HR #20 cap 03/31/19 04/02/19 Rx [Macrobid] Ergocalciferol (Vitamin D2) 50,000 unit PO Q14D 04/02/19 04/02/19 History [Drisdol] Omeprazole 20 mg PO DAILY 04/02/19 04/02/19 History methylPREDNISolone Dose Pack See Taper PO DIRECTED 04/02/19 04/02/19 History [Medrol Dose Pack] Allergies Allergy/AdvReac Type Severity Reaction Status Date / Time Egg Derived Allergy Rash/Hives Verified 04/02/19 14:25 gabapentin Allergy Rash/Hives Verified 04/02/19 14:25 peanut Allergy Rash/Hives Verified 04/02/19 15:15 Penicillins Allergy Rash/Hives Verified 04/02/19 14:25 shellfish derived Allergy Chest Pain Verified 04/02/19 14:25 sulfamethoxazole Allergy Rash/Hives Verified 04/02/19 14:25 [From Bactrim] tomato Allergy Rash/Hives Verified 04/02/19 15:15 trimethoprim [From Bactrim] Allergy Rash/Hives Verified 04/02/19 14:25 Physical Exam Vitals: Vital Signs Temp Pulse Pulse Resp BP BP Pulse Ox 04/03/19 15:00 97.5 F L 78 22 149/93 96 04/03/19 14:09 68 04/03/19 13:58 68 04/03/19 12:00 68 24 132/86 94 L 04/03/19 11:31 60 04/03/19 11:08 63 95 04/03/19 08:15 64 04/03/19 08:00 98.3 F 68 22 143/75 94 L 05/07/19 07:52 68 04/03/19 05:18 64 04/03/19 05:08 68 04/03/19 03:34 98.3 F 71 22 133/67 96 04/03/19 03:22 68 04/03/19 03:06 72 04/03/19 00:45 99.6 F 69 18 133/63 96 04/03/19 00:08 68 04/02/19 23:59 65 04/02/19 21:00 20 04/02/19 20:22 63 04/02/19 20:00 98.2 F 72 18 136/58 96 04/02/19 19:00 98.1 F 63 18 131/60 93 L 04/02/19 18:18 68 20 122/64 95 04/02/19 16:47 69 20 105/58 90 L 04/02/19 16:19 68 04/02/19 16:03 59 L 24 125/54 97 Intake and Output 04/03/19 04/03/19 04/03/19 06:59 14:59 22:59 Intake Total 1160 Balance 1160 Intake: Intake, IV Titration 800 Amount Sodium Chloride 0.9% 1, 800 000 ml @ 100 mls/hr IV . Q10H KAMRAN Rx#:[id number] Oral 360 Other: # Voids 2 Weight 78.5 kg GENERAL EXAM: Alert, pleasant, 88-year-old white female, comfortable in no apparent distress. HEAD: Normocephalic/atraumatic. EYES: Normal reaction of pupils, equal size. Conjunctiva pink, sclera white. NOSE: Clear with pink turbinates. THROAT: No erythema or exudates. NECK: No masses, no JVD, no thyroid enlargement, no adenopathy. CHEST: No chest wall deformity. Symmetrical expansion. LUNGS: Equal air entry with with views wheezes, diminished breath sounds CVS: Regular rate and rhythm, normal S1 and S2, no gallops, no murmurs, no rubs ABDOMEN: Soft, nontender. No hepatosplenomegaly, normal bowel sounds, no guarding or rigidity. EXTREMITIES: No clubbing, no edema, no cyanosis, 2+ pulses and upper and lower extremities. MUSCULOSKELETAL: Muscle strength and tone normal. SPINE: No scoliosis or deformity SKIN: No rashes CENTRAL NERVOUS SYSTEM: Alert and oriented -3. No focal deficits, tone is normal in all 4 extremities. PSYCHIATRIC: Alert and oriented -3. Appropriate affect. Intact judgment and insight. Results - Laboratory Findings CBC and BMP: 04/03/19 06:22 04/03/19 06:22 PT/INR, D-dimer PT 10.9 sec (9.0-12.0) 04/03/19 06:22 INR 1.0 (<1.2) 04/03/19 06:22 D-Dimer 2.10 mg/L FEU (<0.60) H 04/02/19 15:10 Abnormal lab findings: Abnormal Labs 04/02/19 04/02/19 04/02/19 15:10 15:10 15:10 WBC 17.6 H Neutrophils # 15.0 H Lymphocytes # Monocytes # 1.1 H APTT D-Dimer 2.10 H Chloride BUN 28 H Creatinine 1.35 H Glucose 111 H POC Glucose (mg/dL) Calcium 10.3 H Total Protein Albumin 04/02/19 04/03/19 04/03/19 23:33 05:54 06:22 WBC 11.6 H Neutrophils # 10.4 H Lymphocytes # 0.6 L Monocytes # APTT 47.2 H D-Dimer Chloride BUN Creatinine Glucose POC Glucose (mg/dL) 130 H Calcium Total Protein Albumin 04/03/19 04/03/19 04/03/19 06:22 06:22 11:29 WBC Neutrophils # Lymphocytes # Monocytes # APTT 61.7 H D-Dimer Chloride 108 H BUN 27 H Creatinine 1.15 H Glucose 127 H POC Glucose (mg/dL) 112 H Calcium Total Protein 5.8 L Albumin 3.2 L - Diagnostic Findings Chest x-ray: report reviewed, image reviewed Additional studies: VQ scan results reviewed, venous Doppler studies reviewed Assessment and Plan Plan: Assessment: #1. Acute exacerbation of moderate persistent bronchial asthma #2. Acute hypoxemic respiratory failure related to the above #3. Elevated d-dimer, VQ scan showed intermediate probability of pulmonary embolism, and lower extremity Dopplers were negative for DVT, doubt possibility of underlying pulmonary embolism #4. GERD/reflux #5. Recent urinary tract infection #6. Hypertension #7. History of CVA/TIA #8. Lifetime nonsmoker Plan: We'll continue with current medical treatment, IV steroids, agree with antibiotics, heparin drip can be discontinued, and the possibility of pulmonary embolism is unlikely, lower extremities dopplers have been negative, and VQ scan showed intermediate probability of pulmonary embolism. No chest pain, no hemoptysis, no pleurisy. We'll treat patient asthma exacerbation, will add Pulmicort and Perforomist, Ramiro Nguyen, will continue with DuoNeb, we'll continue to follow I performed a history & physical examination of the patient and discussed their management with my nurse practitioner, Demetrice Rashid. I reviewed the nurse practitioner's note and agree with the documented findings and plan of care. Lung sounds are positive for diffuse wheezes throughout the lung wu. The findings and the impression was discussed with the patient. I attest to the documentation by the nurse practitioner. Time with Patient: Greater than 30
[2019-04-03 17:10] LABS: Glucose,Whole Blood 139 mg/dL (75-99)
[2019-04-03] MEDS: AZITHROMYCIN 500 MG TAB PO SCH (17:25)
[2019-04-03] MEDS: BUDESONIDE 1 MG/2 ML NEBU INHALATION SCH (19:25)
[2019-04-03] MEDS: FORMOTEROL FUMARATE 20 MCG/2 ML NEBU INHALATION SCH (19:25)
[2019-04-03 20:38] LABS: Glucose,Whole Blood 134 mg/dL (75-99)
[2019-04-03] MEDS: MONTELUKAST 10 MG TAB PO SCH (21:27)
[2019-04-04] MEDS: methylPREDNISolone SOD SUCCI 125 MG/2 ML VIAL IV SCH ×5 (00:03→23:07)
[2019-04-04] MEDS: IPRATROPIUM-ALBUTEROL 3 ML NEB INHALATION SCH ×6 (00:16→22:07)
[2019-04-04] MEDS: guaiFENesin SYRUP 100MG/5ML 200 MG/10 ML CUP PO PRN ×2 (05:08→11:27)
[2019-04-04 07:17] LABS: Glucose,Whole Blood 120 mg/dL (75-99)
[2019-04-04] MEDS: FORMOTEROL FUMARATE 20 MCG/2 ML NEBU INHALATION SCH ×2 (07:30→22:07)
[2019-04-04] MEDS: BUDESONIDE 1 MG/2 ML NEBU INHALATION SCH ×2 (07:30→22:06)
[2019-04-04] MEDS: INSULIN ASPART (NovoLOG) 100 UNIT/ML VIAL SQ SCH ×4 (07:48→20:40)
[2019-04-04] MEDS: OXYBUTYNIN 10 MG TAB.ER.24 PO SCH (08:08)
[2019-04-04] MEDS: LORATADINE 10 MG TAB PO SCH (08:08)
[2019-04-04] MEDS: ATENOLOL 50 MG TAB PO SCH (08:08)
[2019-04-04] MEDS: PANTOPRAZOLE 40 MG TABLET PO SCH (08:08)
[2019-04-04] MEDS: guaiFENesin 600 MG TABLET.ER PO SCH ×2 (08:08→20:39)
[2019-04-04 11:03] LABS: Basophils # (A) 0.1 k/uL (0-0.2); Basophils % (A) 0 %; Eosinophils % (A) 0 %; HCT 39.7 % (34.0-46.0); HGB 12.1 gm/dL (11.4-16.0); Hypochromasia Slight; Lymphocytes # (A) 0.8 k/uL (1.0-4.8); Lymphocytes % (A) 5 %; MCHC 30.5 g/dL (31.0-37.0); MCV 95.3 fL (80.0-100.0); Mean Platelet Volume 8.4; Monocytes # (A) 0.9 k/uL (0-1.0); Monocytes % (A) 5 %; Neutrophils # (A) 15.6 k/uL (1.3-7.7); Neutrophils % (A) 88 %; Platelet Count 329 k/uL (150-450); RBC 4.17 m/uL (3.80-5.40); WBC 17.7 k/uL (3.8-10.6)
[2019-04-04 11:52] LABS: Glucose,Whole Blood 116 mg/dL (75-99)
[2019-04-04 12:03] LABS: Calcium 9.9 mg/dL (8.4-10.2); Potassium 4.5 mmol/L (3.5-5.1)
--- NOTE | 2019-04-04 12:23 | P.PN ---
Subjective Progress Note Date: 04/04/19 Principal diagnosis: Acute exacerbation of chronic moderate persistent bronchial asthma This 88-year-old white male patient of Dr. Bagley, with history of chronic bronchial asthma, who presented to the hospital on 04/02/2019 with complaints of shortness of breath, persistent coughing, voice hoarseness, chest tightness. Onset of symptoms started 2 weeks ago, and became progressively worse, patient did have some mild subjective chills, but no fevers, she felt exhausted, she was 7 a lot a persistent coughing, but not bringing up much sputum. She states [place] walks at the mall for 2 hours, a few days ago, she thinks he may have overdone it, she had a exacerbation of her sciatica, which was being treated on an outpatient basis, and she was also found to have evidence of bladder infection for which she was started on antibiotics. Patient is a lifetime nonsmoker, she does not use home O2, she does use albuterol nebulized treatments and a Ventolin inhaler which she has been using quite frequently in the last 2 weeks, she's been having nightly bedtime symptoms with increased coughing and shortness of breath. Does have symptoms of GERD/reflux. She did see Dr. Hammond in the remote past for her asthma, but recently has been managed by Dr. Bagley. Chest x-ray, showed minimal pulmonary fibrotic changes, worsening of interstitial pulmonary markings. Patient was found to have elevated d-dimer at 2.10, did have elevated white blood cell count of 17.6, electrolytes were within normal limits, B1 was 28 and creatinine was 1.35, BNP was 2150, troponin was negative 1. VQ scan showed intermediate probability of pulmonary embolism, venous Dopplers of lower extremities was negative for DVT. She was started on heparin drip for intermediate probability of pulmonary embolism and we were asked to see the patient in consultation for acute exacerbation of severe persistent bronchial asthma The patient is seen today 04/04/2019 in follow-up on the regular medical floor. She is awake and alert in no acute distress. She is still having some dyspnea on exertion still somewhat bronchospastic and wheezy. Loose productive cough. No hemoptysis. Blood culture reveals no growth to date. White count 7.7. Hemoglobin 12.1. She remains on DuoNeb inhalations, Pulmicort and Perforomist inhalations, IV Solu-Medrol, Singulair. Antibiotics form of ceftriaxone and azithromycin. Maintaining O2 saturations in the 90s on 3 L/m per nasal cannula. She's afebrile. Hemodynamically stable. Objective - Vital Signs Vital signs: Vital Signs Temp 98.2 F 04/04/19 05:45 Pulse 76 04/04/19 11:11 Resp 17 04/04/19 05:45 BP 135/69 04/04/19 05:45 Pulse Ox 94 L 04/04/19 07:30 Intake & Output 04/03/19 04/04/19 04/04/19 18:59 06:59 18:59 Intake Total 1280 Balance 1280 Weight 81.193 kg Intake: Intake, IV Titration 800 Amount Sodium Chloride 0.9% 1, 800 000 ml @ 100 mls/hr IV . Q10H [facility] Rx#:[id number] Oral 480 Other: Voiding Method Toilet # Voids 1 1 # Bowel Movements 0 - Exam GENERAL EXAM: Alert, pleasant, 88-year-old female, comfortable in no apparent distress. On 3 L nasal cannula HEAD: Normocephalic/atraumatic. EYES: Normal reaction of pupils, equal size. Conjunctiva pink, sclera white. NOSE: Clear with pink turbinates. THROAT: No erythema or exudates. NECK: No masses, no JVD, no thyroid enlargement, no adenopathy. CHEST: No chest wall deformity. Symmetrical expansion. LUNGS: Equal air entry with with views wheezes, diminished breath sounds CVS: Regular rate and rhythm, normal S1 and S2, no gallops, no murmurs, no rubs ABDOMEN: Soft, nontender. No hepatosplenomegaly, normal bowel sounds, no guarding or rigidity. EXTREMITIES: No clubbing, no edema, no cyanosis, 2+ pulses and upper and lower extremities. MUSCULOSKELETAL: Muscle strength and tone normal. SPINE: No scoliosis or deformity SKIN: No rashes CENTRAL NERVOUS SYSTEM: No focal deficits, tone is normal in all 4 extremities. PSYCHIATRIC: Alert and oriented -3. Appropriate affect. Intact judgment and insight. - Labs CBC & Chem 7: 04/04/19 09:59 04/03/19 06:22 Labs: Abnormal Lab Results - Last 24 Hours (Table) 04/03/19 04/03/19 04/04/19 Range/Units 17:08 20:37 07:05 WBC (3.8-10.6) k/uL MCHC (31.0-37.0) g/dL Neutrophils # (1.3-7.7) k/uL Lymphocytes # (1.0-4.8) k/uL POC Glucose (mg/dL) 139 H 134 H 120 H (75-99) mg/dL 04/04/19 04/04/19 Range/Units 09:59 11:48 WBC 17.7 H (3.8-10.6) k/uL MCHC 30.5 L (31.0-37.0) g/dL Neutrophils # 15.6 H (1.3-7.7) k/uL Lymphocytes # 0.8 L (1.0-4.8) k/uL POC Glucose (mg/dL) 116 H (75-99) mg/dL Microbiology - Last 24 Hours (Table) 04/02/19 15:10 Blood Culture - Preliminary Blood No Growth after 24 hours Assessment and Plan Assessment: Assessment: #1. Acute exacerbation of moderate persistent bronchial asthma #2. Acute hypoxemic respiratory failure related to the above #3. Elevated d-dimer, VQ scan showed intermediate probability of pulmonary embolism, and lower extremity Dopplers were negative for DVT, doubt possibility of underlying pulmonary embolism #4. GERD/reflux #5. Recent urinary tract infection #6. Hypertension #7. History of CVA/TIA #8. Lifetime nonsmoker Plan: The patient was seen and evaluated by Dr. Nunez. She is improved today compared to yesterday. Not quite back to her baseline. We'll continue with the current treatment plan. We'll increase her activity as tolerated. We'll continue to follow make further recommendations based on her clinical status. I, the cosigning physician, performed a history & physical examination of the patient. Lungs sounds with bilateral end expiratory wheeze. Maintaining good O2 saturations in the 90s on 3 L/m per nasal cannula. I discussed the assessment and plan of care with my nurse practitioner, Corinna Hall. I attest to the above note as dictated by her.
[2019-04-04] MEDS: POLYETHYLENE GLYCOL 3350 17 GM POWD.PACK PO SCH (12:52)
--- NOTE | 2019-04-04 15:21 | P.PN ---
Subjective Progress Note Date: 04/04/19 This is an 88-year-old female patient of Dr. 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 Patient states that she has seen Dr. Denson in the past for about 2 years but is not currently following with any pulmonary doctor. Patient states for the past several days she was feeling tired exhausted having increasing shortness of breath and cough. Yesterday she states her cough was so severe she couldn't catch her breath and she usually does not have coughing with an asthma attack. She denies having any fever but states she has had chills. She complains of nausea without vomiting. She states she has been using her nebulizer up to 6 times per day without any improvement. She does not have home oxygen. She was recently seen in the emergency room on March 31 due to sciatica and urinary tract infection and was discharged home on [place], Medrol Dosepak and Macrodantin. She came into [facility] emergency center for evaluation. She was afebrile, heart rate in the 60s, blood pressure 137/62, pulse ox 90% on room air. White count 17.6, BUN 20 creatinine 1.34, blood sugar 111, d-dimer was elevated at 2.1. Electrolytes were within normal limits, liver function tests normal. ProBNP 2150, troponin negative. Chest x-ray reveals minimal pulmonary fibrotic changes that are increased compared to old exam. Normal heart. V/Q scan shows evidence of severe bilateral airspace disease. Intermediate probability of pulmonary embolism. Venous ultrasound of the lower extremity is negative for DVT. Patient was started on antibiotics, nebulizer treatments, heparin drip and admitted to thecardiac stepdown unit. Pulmonary consult requested. Patient will be transferred to [facility] floor. 04/04: Patient has been seen by Dr. Nunez and pulmonary embolism has been ruled out. Patient to continue on IV steroids, antibiotics and nebulizer treatments. Blood sugars are running 120-134. Blood cultures no growth after 24 hours. Patient is been afebrile, heart rate in the 70s, pulse ox 94% on 3 L nasal cannula. Patient is home O2 dependent. Blood pressure 135/69. Patient's breathing status is improved. She continues to have some shortness of breath. Incentive spirometry will be ordered. Patient is having a productive cough and sputum culture will be requested. Patient is also complaining of constipation and MiraLAX added. Review of Systems Constitutional: Reports chills, Reports fatigue, Denies anorexia, Denies fever, Denies lethargy, Denies malaise, Denies poor appetite, Denies weight loss Ears, nose, mouth and throat: Denies dental pain, Denies dysphagia, Denies mouth pain, Denies nasal congestion, Denies nasal discharge, Denies vertigo Cardiovascular: Reports dyspnea on exertion, Denies edema, Denies leg edema, Denies lightheadedness, Denies syncope Respiratory: Reports cough, Reports dyspnea, Reports wheezing, Denies cough with sputum, Denies excessive sputum, Denies hemoptysis, Denies home oxygen Gastrointestinal: Denies abdominal pain, Denies diarrhea, Denies loss of appetite, Denies nausea, Denies vomiting, reports constipation Genitourinary: Denies dysuria, Denies hematuria, Denies urgency, Denies urinary frequency Musculoskeletal: Denies frequent falls, Denies gait dysfunction, Denies muscle weakness, Denies myalgias Integumentary: Denies wounds Neurological: Denies aphasia, Denies change in mentation, Denies change in speech, Denies gait dysfunction, Denies headaches, Denies seizures, Denies vertigo Psychiatric: Denies anxiety, Denies depression Objective - Vital Signs Vital signs: Vital Signs Temp 98.2 F 04/04/19 05:45 Pulse 74 04/04/19 07:50 Resp 17 04/04/19 05:45 BP 135/69 04/04/19 05:45 Pulse Ox 94 L 04/04/19 07:30 Intake & Output 04/03/19 04/04/19 04/04/19 18:59 06:59 18:59 Intake Total 1280 Balance 1280 Weight 81.193 kg Intake: Intake, IV Titration 800 Amount Sodium Chloride 0.9% 1, 800 000 ml @ 100 mls/hr IV . Q10H [facility] Rx#:[id number] Oral 480 Other: Voiding Method Toilet # Voids 1 1 # Bowel Movements 0 - Exam Gen: This is a 88-year-old female. She is resting in bed and has frequent coughs she is able to speak in full sentences. at bedside. HEENT: Head is atraumatic, normocephalic. Pupils equal, round. Sclerae is anicteric. NECK: Supple. No JVD. No lymphadenopathy. No thyromegaly. LUNGS: Inspiratory and expiratory wheezing throughout. Mild accessory muscle usage. Mild intercostal retractions. HEART: Regular rate and rhythm. No murmur. ABDOMEN: Soft. Bowel sounds are present. No masses. No tenderness. EXTREMITIES: No pedal edema. No calf tenderness. Dorsalis pedis +2 bilaterally. NEUROLOGICAL: Patient is awake, alert and oriented x3. Cranial nerves 2 through 12 are grossly intact. - Labs CBC & Chem 7: 04/04/19 09:59 04/04/19 09:59 Labs: Abnormal Lab Results - Last 24 Hours (Table) 04/03/19 04/03/19 04/03/19 Range/Units 11:29 17:08 20:37 POC Glucose (mg/dL) 112 H 139 H 134 H (75-99) mg/dL 04/04/19 Range/Units 07:05 POC Glucose (mg/dL) 120 H (75-99) mg/dL Microbiology - Last 24 Hours (Table) 04/02/19 15:10 Blood Culture - Preliminary Blood No Growth after 24 hours Assessment and Plan Plan: 1. Acute asthma exacerbation, moderate persistent asthma. Continue DuoNeb treatments every 4 hours and as needed, azithromycin, ceftriaxone added, continue Pulmicort twice daily, Perforomist twice daily, Mucinex and Robitussin, Solu-Medrol 60 mg IV every 6 hours, Singulair 10 mg at bedtime, Claritin [address] mg daily[address] Consult [address]. Henley appreciated. 2. Pulmonary embolism ruled out. Pulmonary consultation appreciated. Heparin drip discontinued. Patient will be transferred to [facility] floor. 3. Hypertension. Continue atenolol 50 mg daily. 4. Overactive bladder. Continue oxybutynin. 5. Recently diagnosed with urinary tract infection. Patient is covered with ceftriaxone. Macrodantin discontinued. 6. Sciatica. Patient is currently on Solu-Medrol and continue [place] as needed. 7. DVT prophylaxis. Heparin subcu. 8. GI prophylaxis. Protonix. 9. CODE STATUS: No code per patient wishes. Discharge plan: Most likely return home. PT and OT will be added. Impression and plan of care have been directed as dictated by the signing physician. Faina Michael nurse practitioner acting as scribe for signing physician.
[2019-04-04] MEDS: AZITHROMYCIN 500 MG TAB PO SCH (16:23)
[2019-04-04 17:08] LABS: Glucose,Whole Blood 122 mg/dL (75-99)
[2019-04-04 20:30] LABS: Glucose,Whole Blood 150 mg/dL (75-99)
[2019-04-04] MEDS: MONTELUKAST 10 MG TAB PO SCH (20:39)
[2019-04-04] MEDS: HYDROcodone/APAP 5-325MG 1 EACH TAB PO PRN (20:39)
[2019-04-05] MEDS: IPRATROPIUM-ALBUTEROL 3 ML NEB INHALATION SCH ×6 (02:32→19:45)
[2019-04-05] MEDS: methylPREDNISolone SOD SUCCI 125 MG/2 ML VIAL IV SCH ×2 (05:56→11:32)
[2019-04-05 07:26] LABS: Glucose,Whole Blood 135 mg/dL (75-99)
[2019-04-05] MEDS: FORMOTEROL FUMARATE 20 MCG/2 ML NEBU INHALATION SCH ×2 (07:27→20:55)
[2019-04-05] MEDS: BUDESONIDE 1 MG/2 ML NEBU INHALATION SCH ×2 (07:27→19:45)
[2019-04-05] MEDS: LORATADINE 10 MG TAB PO SCH (08:20)
[2019-04-05] MEDS: OXYBUTYNIN 10 MG TAB.ER.24 PO SCH (08:20)
[2019-04-05] MEDS: ATENOLOL 50 MG TAB PO SCH (08:20)
[2019-04-05] MEDS: guaiFENesin 600 MG TABLET.ER PO SCH ×2 (08:20→20:43)
[2019-04-05] MEDS: PANTOPRAZOLE 40 MG TABLET PO SCH (08:20)
[2019-04-05] MEDS: guaiFENesin SYRUP 100MG/5ML 200 MG/10 ML CUP PO PRN ×2 (08:20→16:12)
[2019-04-05] MEDS: INSULIN ASPART (NovoLOG) 100 UNIT/ML VIAL SQ SCH ×4 (08:21→20:43)
[2019-04-05] MEDS: POLYETHYLENE GLYCOL 3350 17 GM POWD.PACK PO SCH (08:21)
[2019-04-05 09:39] LABS: Basophils # (A) 0.1 k/uL (0-0.2); Basophils % (A) 1 %; Eosinophils % (A) 0 %; HCT 39.8 % (34.0-46.0); Lymphocytes # (A) 0.8 k/uL (1.0-4.8); Lymphocytes % (A) 4 %; MCH 28.7 pg (25.0-35.0); MCHC 30.1 g/dL (31.0-37.0); MCV 95.5 fL (80.0-100.0); Mean Platelet Volume 7.9; Monocytes # (A) 0.5 k/uL (0-1.0); Monocytes % (A) 3 %; Neutrophils # (A) 15.9 k/uL (1.3-7.7); Neutrophils % (A) 91 %; Platelet Count 306 k/uL (150-450); RBC 4.17 m/uL (3.80-5.40); RDW 14.1 % (11.5-15.5); WBC 17.5 k/uL (3.8-10.6)
[2019-04-05 10:56] LABS: Calcium 9.4 mg/dL (8.4-10.2); Potassium 4.2 mmol/L (3.5-5.1)
[2019-04-05 11:53] LABS: Glucose,Whole Blood 120 mg/dL (75-99)
--- NOTE | 2019-04-05 13:16 | P.PN ---
Subjective Progress Note Date: 04/05/19 Principal diagnosis: Acute exacerbation of chronic moderate persistent bronchial asthma This 88-year-old white male patient of Dr. Bagley, with history of chronic bronchial asthma, who presented to the hospital on 04/02/2019 with complaints of shortness of breath, persistent coughing, voice hoarseness, chest tightness. Onset of symptoms started 2 weeks ago, and became progressively worse, patient did have some mild subjective chills, but no fevers, she felt exhausted, she was 7 a lot a persistent coughing, but not bringing up much sputum. She [place] the mall [place] 2 hours, a few days ago, she thinks he may have overdone it, she had a exacerbation of her sciatica, which was being treated on an outpatient basis, and she was also found to have evidence of bladder infection for which she was started on antibiotics. Patient is a lifetime nonsmoker, she does not use home O2, she does use albuterol nebulized treatments and a Ventolin inhaler which she has been using quite frequently in the last 2 weeks, she's been having nightly bedtime symptoms with increased coughing and shortness of breath. Does have symptoms of GERD/reflux. She did see Dr. Hammond in the remote past for her asthma, but recently has been managed by Dr. Bagley. Chest x-ray, showed minimal pulmonary fibrotic changes, worsening of interstitial pulmonary markings. Patient was found to have elevated d-dimer at 2.10, did have elevated white blood cell count of 17.6, electrolytes were within normal limits, B1 was 28 and creatinine was 1.35, BNP was 2150, troponin was negative 1. VQ scan showed intermediate probability of pulmonary embolism, venous Dopplers of lower extremities was negative for DVT. She was started on heparin drip for intermediate probability of pulmonary embolism and we were asked to see the patient in consultation for acute exacerbation of severe persistent bronchial asthma The patient is seen today 04/04/2019 in follow-up on the regular medical floor. She is awake and alert in no acute distress. She is still having some dyspnea on exertion still somewhat bronchospastic and wheezy. Loose productive cough. No hemoptysis. Blood culture reveals no growth to date. White count 7.7. Hemoglobin 12.1. She remains on DuoNeb inhalations, Pulmicort and Perforomist inhalations, IV Solu-Medrol, Singulair. Antibiotics form of ceftriaxone and azithromycin. Maintaining O2 saturations in the 90s on 3 L/m per nasal cannula. She's afebrile. Hemodynamically stable. On 04/05/2019 patient is seen in follow-up on medical surgical floor. She is awake and alert, in no acute distress, she is breathing a lot easier, less dyspneic, less wheezy, lung sounds are diminished, with some expiratory wheezes on forced exhale maneuver, she remains on oxygen, at 3 L, with a pulse ox of 95%, room air pulse ox was 88%, she is afebrile, today's labs have been re viewed, white blood cell count remains stable at 17.5, hemoglobin is 12.0, electrodes were within normal limits, and a renal profile is relatively stable with BUN of 35 and creatinine of 1.28. Blood cultures so far have shown no growth. Patient is on a combination of Rocephin and Zithromax, Pulmicort and Perforomist, DuoNeb nebulized treatments, and IV Solu-Medrol 60 mg every 6 hours. She has been ambulating and tolerating activity fairly well. Objective - Vital Signs Vital signs: Vital Signs Temp 98.8 F 04/05/19 05:58 Pulse 66 04/05/19 11:24 Resp 16 04/05/19 05:58 BP 155/80 04/05/19 05:58 Pulse Ox 88 L 04/05/19 10:31 Intake & Output 04/04/19 04/05/19 04/05/19 18:59 06:59 18:59 Intake Total 50 200 320 Balance 50 200 320 Weight 83.5 kg Intake: IV 50 cefTRIAXone 1 gm In 50 Sodium Chloride 0.9% 50 ml @ 100 mls/hr IVPB Q24HR [facility] Rx#:[id number] Oral 200 320 Other: # Voids 1 # Bowel Movements 1 - Exam GENERAL EXAM: Alert, very pleasant 88-year-old white female, on 3 L of oxygen and the pulse ox of 95% comfortable in no apparent distress. HEAD: Normocephalic/atraumatic. EYES: Normal reaction of pupils, equal size. Conjunctiva pink, sclera white. NOSE: Clear with pink turbinates. THROAT: No erythema or exudates. NECK: No masses, no JVD, no thyroid enlargement, no adenopathy. CHEST: No chest wall deformity. Symmetrical expansion. LUNGS: Equal air entry with expiratory wheezes CVS: Regular rate and rhythm, normal S1 and S2, no gallops, no murmurs, no rubs ABDOMEN: Soft, nontender. No hepatosplenomegaly, normal bowel sounds, no guarding or rigidity. EXTREMITIES: No clubbing, no edema, no cyanosis, 2+ pulses and upper and lower extremities. MUSCULOSKELETAL: Muscle strength and tone normal. SPINE: No scoliosis or deformity SKIN: No rashes CENTRAL NERVOUS SYSTEM: Alert and oriented -3. No focal deficits, tone is normal in all 4 extremities. PSYCHIATRIC: Alert and oriented -3. Appropriate affect. Intact judgment and insight. - Labs CBC & Chem 7: 04/05/19 08:49 04/05/19 08:49 Labs: Abnormal Lab Results - Last 24 Hours (Table) 04/04/19 04/04/19 04/05/19 Range/Units 17:02 20:18 07:07 WBC (3.8-10.6) k/uL MCHC (31.0-37.0) g/dL Neutrophils # (1.3-7.7) k/uL Lymphocytes # (1.0-4.8) k/uL BUN (7-17) mg/dL Creatinine (0.52-1.04) mg/dL Glucose (74-99) mg/dL POC Glucose (mg/dL) 122 H 150 H 135 H (75-99) mg/dL 04/05/19 04/05/19 04/05/19 Range/Units 08:49 08:49 11:33 WBC 17.5 H (3.8-10.6) k/uL MCHC 30.1 L (31.0-37.0) g/dL Neutrophils # 15.9 H (1.3-7.7) k/uL Lymphocytes # 0.8 L (1.0-4.8) k/uL BUN 35 H (7-17) mg/dL Creatinine 1.28 H (0.52-1.04) mg/dL Glucose 182 H (74-99) mg/dL POC Glucose (mg/dL) 120 H (75-99) mg/dL Microbiology - Last 24 Hours (Table) 04/02/19 15:10 Blood Culture - Preliminary Blood No Growth after 48 hours Assessment and Plan Plan: Assessment: #1. Acute exacerbation of moderate persistent bronchial asthma #2. Acute hypoxemic respiratory failure related to the above #3. Elevated d-dimer, VQ scan showed intermediate probability of pulmonary embolism, and lower extremity Dopplers were negative for DVT, doubt possibility of underlying pulmonary embolism #4. GERD/reflux #5. Recent urinary tract infection #6. Hypertension #7. History of CVA/TIA #8. Lifetime nonsmoker Plan: Patient continues to improve, still requiring oxygen, room air pulse ox is 88%, still has some wheezes, but clinically patient is improving, less dyspneic, less bronchospastic, tolerating ambulation, will continue current medical treatment, IV steroids. Cultures so far has shown no growth. Plans of chest pain, chest tightness, cough or congestion. Patient has been approved for Symbicort by her insurance. Will reevaluate for possibility of discharge afternoon. We will need follow-up with Dr. Malave in the office in 7-10 days I performed a history & physical examination of the patient and discussed their management with my nurse practitioner, Demetrice Rashid. I reviewed the nurse practitioner's note and agree with the documented findings and plan of care. Lung sounds are positive for diffuse wheezes throughout the lung wu. The findings and the impression was discussed with the patient. I attest to the documentation by the nurse practitioner. Time with Patient: Less than 30
--- NOTE | 2019-04-05 13:51 | P.PN ---
Subjective Progress Note Date: 04/05/19 This is an 88-year-old female patient of Dr. 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 Patient states that she has seen Dr. Denson in the past for about 2 years but is not currently following with any pulmonary doctor. Patient states for the past several days she was feeling tired exhausted having increasing shortness of breath and cough. Yesterday she states her cough was so severe she couldn't catch her breath and she usually does not have coughing with an asthma attack. She denies having any fever but states she has had chills. She complains of nausea without vomiting. She states she has been using her nebulizer up to 6 times per day without any improvement. She does not have home oxygen. She was recently seen in the emergency room on March 31 due to sciatica and urinary tract infection and was discharged home on [place], Medrol Dosepak and Macrodantin. She came into [facility] emergency center for evaluation. She was afebrile, heart rate in the 60s, blood pressure 137/62, pulse ox 90% on room air. White count 17.6, BUN 20 creatinine 1.34, blood sugar 111, d-dimer was elevated at 2.1. Electrolytes were within normal limits, liver function tests normal. ProBNP 2150, troponin negative. Chest x-ray reveals minimal pulmonary fibrotic changes that are increased compared to old exam. Normal heart. V/Q scan shows evidence of severe bilateral airspace disease. Intermediate probability of pulmonary embolism. Venous ultrasound of the lower extremity is negative for DVT. Patient was started on antibiotics, nebulizer treatments, heparin drip and admitted to thecardiac stepdown unit. Pulmonary consult requested. Patient will be transferred to [facility] floor. 04/04: Patient has been seen by Dr. Nunez and pulmonary embolism has been ruled out. Patient to continue on IV steroids, antibiotics and nebulizer treatments. Blood sugars are running 120-134. Blood cultures no growth after 24 hours. Patient is been afebrile, heart rate in the 70s, pulse ox 94% on 3 L nasal cannula. Patient is home O2 dependent. Blood pressure 135/69. Patient's breathing status is improved. She continues to have some shortness of breath. Incentive spirometry will be ordered. Patient is having a productive cough and sputum culture will be requested. Patient is also complaining of constipation and MiraLAX added. 04/05: The patient states that she is breathing easier today. She has less cough. She is currently on Solu-Medrol 60 every 6 hours which will decrease to 40 every 8 and transitioned to oral prednisone in the morning. She has been set up with home oxygen by piano case maker. She is currently afebrile, heart rate 60, blood pressure 155/80, pulse ox on room air was 88%. Blood culture showing no growth at 48 hours. Blood sugars running between 122 and 182, white count 17.5, BUN 35 and creatinine 1.28. Anticipate discharge home tomorrow. Review of Systems Constitutional: Reports fatigue, Denies anorexia, Denies fever, Denies lethargy, Denies malaise, Denies poor appetite, Denies weight loss Ears, nose, mouth and throat: Denies dental pain, Denies dysphagia, Denies mouth pain, Denies nasal congestion, Denies nasal discharge, Denies vertigo Cardiovascular: Reports dyspnea on exertion, Denies edema, Denies leg edema, Denies lightheadedness, Denies syncope Respiratory: Reports cough, Reports dyspnea, Reports wheezing, Denies cough with sputum, Denies excessive sputum, Denies hemoptysis, Denies home oxygen Gastrointestinal: Denies abdominal pain, Denies diarrhea, Denies loss of appetite, Denies nausea, Denies vomiting, reports constipation Genitourinary: Denies dysuria, Denies hematuria, Denies urgency, Denies urinary frequency Musculoskeletal: Denies frequent falls, Denies gait dysfunction, Denies muscle weakness, Denies myalgias Integumentary: Denies wounds Neurological: Denies aphasia, Denies change in mentation, Denies change in speech, Denies gait dysfunction, Denies headaches, Denies seizures, Denies vertigo Psychiatric: Denies anxiety, Denies depression Objective - Vital Signs Vital signs: Vital Signs Temp 98.8 F 04/05/19 05:58 Pulse 64 04/05/19 07:48 Resp 16 04/05/19 05:58 BP 155/80 04/05/19 05:58 Pulse Ox 88 L 04/05/19 10:31 Intake & Output 04/04/19 04/05/19 04/05/19 18:59 06:59 18:59 Intake Total 50 200 320 Balance 50 200 320 Weight 83.5 kg Intake: IV 50 cefTRIAXone 1 gm In 50 Sodium Chloride 0.9% 50 ml @ 100 mls/hr IVPB Q24HR [facility] Rx#:[id number] Oral 200 320 Other: # Voids 1 # Bowel Movements 1 - Exam Gen: This is a 88-year-old female. She is resting in bed and has frequent cough she is able to speak in full sentences. at bedside. HEENT: Head is atraumatic, normocephalic. Pupils equal, round. Sclerae is an icteric. NECK: Supple. No JVD. No lymphadenopathy. No thyromegaly. LUNGS: Inspiratory and expiratory wheezing throughout with good air exchange. HEART: Regular rate and rhythm. No murmur. ABDOMEN: Soft. Bowel sounds are present. No masses. No tenderness. EXTREMITIES: No pedal edema. No calf tenderness. Dorsalis pedis +2 bilaterally. NEUROLOGICAL: Patient is awake, alert and oriented x3. Cranial nerves 2 through 12 are grossly intact. - Labs CBC & Chem 7: 04/05/19 08:49 04/05/19 08:49 Labs: Abnormal Lab Results - Last 24 Hours (Table) 04/04/19 04/04/19 04/04/19 Range/Units 09:59 09:59 11:48 WBC 17.7 H (3.8-10.6) k/uL MCHC 30.5 L (31.0-37.0) g/dL Neutrophils # 15.6 H (1.3-7.7) k/uL Lymphocytes # 0.8 L (1.0-4.8) k/uL Chloride 108 H (98-107) mmol/L BUN 32 H (7-17) mg/dL Creatinine 1.23 H (0.52-1.04) mg/dL Glucose 116 H (74-99) mg/dL POC Glucose (mg/dL) 116 H (75-99) mg/dL 04/04/19 04/04/19 04/05/19 Range/Units 17:02 20:18 07:07 WBC (3.8-10.6) k/uL MCHC (31.0-37.0) g/dL Neutrophils # (1.3-7.7) k/uL Lymphocytes # (1.0-4.8) k/uL Chloride (98-107) mmol/L BUN (7-17) mg/dL Creatinine (0.52-1.04) mg/dL Glucose (74-99) mg/dL POC Glucose (mg/dL) 122 H 150 H 135 H (75-99) mg/dL 04/05/19 04/05/19 Range/Units 08:49 08:49 WBC 17.5 H (3.8-10.6) k/uL MCHC 30.1 L (31.0-37.0) g/dL Neutrophils # (1.3-7.7) k/uL Lymphocytes # (1.0-4.8) k/uL Chloride (98-107) mmol/L BUN 35 H (7-17) mg/dL Creatinine 1.28 H (0.52-1.04) mg/dL Glucose 182 H (74-99) mg/dL POC Glucose (mg/dL) (75-99) mg/dL Microbiology - Last 24 Hours (Table) 04/02/19 15:10 Blood Culture - Preliminary Blood No Growth after 48 hours Assessment and Plan Plan: 1. Acute asthma exacerbation, moderate persistent asthma. Continue DuoNeb treatments every 4 hours and as needed, azithromycin, ceftriaxone added, continue Pulmicort twice daily, Perforomist twice daily, Mucinex and Robitussin, Solu-Medrol 60 mg IV every 6 hours decreased to 40 every 8 and start prednisone in the morning, Singulair 10 mg at bedtime, Claritin [address] Nunez appreciated. 2. Pulmonary embolism ruled out. Pulmonary consultation appreciated. Heparin drip discontinued. Patient will be transferred to [facility] floor. 3. Hypertension. Continue atenolol 50 mg daily. 4. Overactive bladder. Continue oxybutynin. 5. Recently diagnosed with urinary tract infection. Patient is covered with ceftriaxone. Macrodantin discontinued. 6. Sciatica. Patient is currently on Solu-Medrol and continue [place] as needed. 7. DVT prophylaxis. Heparin subcu. 8. GI prophylaxis. Protonix. 9. Chronic hypoxic respiratory failure requiring home oxygen. Home oxygen has been arranged by piano case maker. CODE STATUS: No code per patient wishes. Discharge plan: Home tomorrow. Impression and plan of care have been directed as dictated by the signing physician. Faina Michael nurse practitioner acting as scribe for signing physician.
[2019-04-05] MEDS ORDERED: methylPREDNISolone SOD SUCCI 40 MG/ML 1 ML VIAL IV SCH (16:00)
[2019-04-05] MEDS: AZITHROMYCIN 500 MG TAB PO SCH (16:12)
[2019-04-05 17:19] LABS: Glucose,Whole Blood 133 mg/dL (75-99)
[2019-04-05 20:43] LABS: Glucose,Whole Blood 124 mg/dL (75-99)
[2019-04-05] MEDS: MONTELUKAST 10 MG TAB PO SCH (20:43)
[2019-04-05] MEDS: HYDROcodone/APAP 5-325MG 1 EACH TAB PO PRN (22:05)
[2019-04-05 22:19] VITALS: RESP 20
[2019-04-06] MEDS: IPRATROPIUM-ALBUTEROL 3 ML NEB INHALATION SCH ×4 (00:07→10:53)
[2019-04-06 05:17] VITALS: BP 170/68; TEMP 98.5
[2019-04-06] MEDS: FORMOTEROL FUMARATE 20 MCG/2 ML NEBU INHALATION SCH (07:22)
[2019-04-06] MEDS: BUDESONIDE 1 MG/2 ML NEBU INHALATION SCH (07:22)
[2019-04-06 07:25] LABS: Glucose,Whole Blood 112 mg/dL (75-99)
[2019-04-06] MEDS: INSULIN ASPART (NovoLOG) 100 UNIT/ML VIAL SQ SCH ×2 (07:38→11:58)
[2019-04-06] MEDS: guaiFENesin 600 MG TABLET.ER PO SCH (07:39)
[2019-04-06] MEDS: PANTOPRAZOLE 40 MG TABLET PO SCH (07:39)
[2019-04-06] MEDS: LORATADINE 10 MG TAB PO SCH (07:39)
[2019-04-06] MEDS: POLYETHYLENE GLYCOL 3350 17 GM POWD.PACK PO SCH (07:39)
[2019-04-06] MEDS: ATENOLOL 50 MG TAB PO SCH (07:39)
[2019-04-06] MEDS: OXYBUTYNIN 10 MG TAB.ER.24 PO SCH (07:40)
[2019-04-06 08:46] LABS: Basophils # (A) 0.1 k/uL (0-0.2); Basophils % (A) 1 %; Eosinophils # (A) 0.1 k/uL (0-0.7); Eosinophils % (A) 0 %; HCT 39.2 % (34.0-46.0); HGB 12.3 gm/dL (11.4-16.0); Lymphocytes # (A) 1.1 k/uL (1.0-4.8); Lymphocytes % (A) 6 %; MCH 29.6 pg (25.0-35.0); MCHC 31.4 g/dL (31.0-37.0); MCV 94.3 fL (80.0-100.0); Mean Platelet Volume 7.5; Monocytes # (A) 0.9 k/uL (0-1.0); Monocytes % (A) 5 %; Neutrophils # (A) 15.8 k/uL (1.3-7.7); Neutrophils % (A) 87 %; Platelet Count 305 k/uL (150-450); RBC 4.16 m/uL (3.80-5.40); RDW 13.8 % (11.5-15.5); WBC 18.2 k/uL (3.8-10.6)
[2019-04-06] MEDS ORDERED: predniSONE 20 MG TAB PO SCH (09:00)
[2019-04-06 10:55] VITALS: PULSE 72
[2019-04-06 11:52] LABS: Glucose,Whole Blood 148 mg/dL (75-99)
--- NOTE | 2019-04-06 13:17 | P.DS ---
Providers Date of admission: 04/02/19 16:09 Expected date of discharge: 04/06/19 Attending physician: Samuel Bagley Consults: 04/02/19 16:09 Consult Physician Routine Consulting Provider: Yoon Munoz Consult Reason/Comments: copd Do you want consulting provider notified?: Yes Primary care physician: Samuel Bagley [facility] Course: This is an 88-year-old female patient of Dr. 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 Patient states that she has seen Dr. Denson in the past for about 2 years but is not currently following with any pulmonary doctor. Patient states for the past several days she was feeling tired exhausted having increasing shortness of breath and cough. Yesterday she states her cough was so severe she couldn't catch her breath and she usually does not have coughing with an asthma attack. She denies having any fever but states she has had chills. She complains of nausea without vomiting. She states she has been using her nebulizer up to 6 times per day without any improvement. She does not have home oxygen. She was recently seen in the emerg ency room on March 31 due to sciatica and urinary tract infection and was discharged home on [place], Medrol Dosepak and Macrodantin. She came into [facility] emergency center for evaluation. She was afebrile, heart rate in the 60s, blood pressure 137/62, pulse ox 90% on room air. White count 17.6, BUN 20 creatinine 1.34, blood sugar 111, d-dimer was elevated at 2.1. Electrolytes were within normal limits, liver function tests normal. ProBNP 2150, troponin negative. Chest x-ray reveals minimal pulmonary fibrotic changes that are increased compared to old exam. Normal hear t. V/Q scan shows evidence of severe bilateral airspace disease. Intermediate probability of pulmonary embolism. Venous ultrasound of the lower extremity is negative for DVT. Patient was started on antibiotics, nebulizer treatments, heparin drip and admitted to thecardiac stepdown unit. Pulmonary consult requested. Patient will be transferred to [facility] floor. 04/04: Patient has been seen by Dr. Nunez and pulmonary embolism has been ruled out. Patient to continue on IV steroids, antibiotics and nebulizer treatments. Blood sugars are running 120-134. Blood cultures no growth after 24 hours. Patient is been afebrile, heart rate in the 70s, pulse ox 94% on 3 L nasal cannula. Patient is home O2 dependent. Blood pressure 135/69. Patient's breathing status is improved. She continues to have some shortness of breath. Incentive spirometry will be ordered. Patient is having a productive cough and sputum culture will be requested. Patient is also complaining of constipation a nd MiraLAX added. 04/05: The patient states that she is breathing easier today. She has less cough. She is currently on Solu-Medrol 60 every 6 hours which will decrease to 40 every 8 and transitioned to oral prednisone in the morning. She has been set up with home oxygen by nurse case manager. She is currently afebrile, heart rate 60, blood pressure 155/80, pulse ox on room air was 88%. Blood culture showing no growth at 48 hours. Blood sugars running between 122 and 182, white count 17.5, BUN 35 and creatinine 1.28. Anticipate discharge home tomorrow. 04/06: Patient states that she is feeling well today and breathing status is improving. She has been set up for home oxygen at 3 L nasal cannula and this is at her bedside. Dr. Nunez has cleared her for discharge. She has been afebrile, pulse ox 97% on 3 L, heart rate in the 70s. WBC 18.2, hemoglobin 12.3. Blood sugars running between 112 and 148. Patient is been transitioned to oral prednisone this morning. Patient will be discharged home today in stable condition. Discharge diagnoses: 1. Acute asthma exacerbation, moderate persistent asthma. 2. Pulmonary embolism ruled out. 3. Hypertension. 4. Overactive bladder. 5. Recently diagnosed with urinary tract infection. 6. Sciatica. 7. Chronic hypoxic respiratory failure requiring home oxygen. Discharge plan: Home Impression and plan of care have been directed as dictated by the signing physician. Faina Michael nurse practitioner acting as scribe for signing physician. Patient Condition at Discharge: Good Plan - Discharge Summary Discharge Rx Participant: No New Discharge Prescriptions: New Budesonide-Formot 160-4.5 Mcg [Symbicort 160-4.5 Mcg Inhaler] 2 puff INHALATION BID 30 Days #1 inhaler Loratadine [Claritin] 10 mg PO DAILY tab guaiFENesin [Mucinex] 600 mg PO Q12HR PRN #30 tablet.er PRN Reason: Cough predniSONE 0 mg PO DIRECTED #30 tab guaiFENesin SYRUP 100MG/5ML [Robitussin] 200 mg PO Q6H PRN cup PRN Reason: Cough Montelukast [Singulair] 10 mg PO HS #30 tab Azithromycin [Zithromax] 500 mg PO DAILY #1 tab Continue Oxybutynin Chloride [Oxybutynin Chloride ER] 10 mg PO DAILY Albuterol Sulfate [Ventolin HFA] 1 puff INHALATION RT-QID PRN PRN Reason: Shortness Of Breath Atenolol [Tenormin] 50 mg PO DAILY Albuterol Nebulized [Ventolin Nebulized] 2.5 mg INHALATION RT-Q6H PRN PRN Reason: Shortness Of Breath HYDROcodone/APAP 5-325MG [[place] 5-325] 1 tab PO Q6HR PRN #12 tab PRN Reason: Pain Omeprazole 20 mg PO DAILY Ergocalciferol (Vitamin D2) [Drisdol] 50,000 unit PO Q14D Discontinued Nitrofurantoin Monohyd/M-Cryst [Macrobid] 100 mg PO Q12HR #20 cap methylPREDNISolone Dose Pack [Medrol Dose Pack] See Taper PO DIRECTED Discharge Medication List Albuterol Sulfate [Ventolin HFA] 1 puff INHALATION RT-QID PRN 09/23/14 [History] Oxybutynin Chloride [Oxybutynin Chloride ER] 10 mg PO DAILY 09/23/14 [History] Albuterol Nebulized [Ventolin Nebulized] 2.5 mg INHALATION RT-Q6H PRN 03/31/19 [History] Atenolol [Tenormin] 50 mg PO DAILY 03/31/19 [History] HYDROcodone/APAP 5-325MG [[place] 5-325] 1 tab PO Q6HR PRN #12 tab 03/31/19 [Rx] Ergocalciferol (Vitamin D2) [Drisdol] 50,000 unit PO Q14D 04/02/19 [History] Omeprazole 20 mg PO DAILY 04/02/19 [History] Budesonide-Formot 160-4.5 Mcg [Symbicort 160-4.5 Mcg Inhaler] 2 puff INHALATION BID 30 Days #1 inhaler 04/05/19 [Rx] Azithromycin [Zithromax] 500 mg PO DAILY #1 tab 04/06/19 [Rx] Loratadine [Claritin] 10 mg PO DAILY tab 04/06/19 [Rx] Montelukast [Singulair] 10 mg PO HS #30 tab 04/06/19 [Rx] guaiFENesin SYRUP 100MG/5ML [Robitussin] 200 mg PO Q6H PRN cup 04/06/19 [Rx] guaiFENesin [Mucinex] 600 mg PO Q12HR PRN #30 tablet.er 04/06/19 [Rx] predniSONE 0 mg PO DIRECTED #30 tab 04/06/19 [Rx] Follow up Appointment(s)/Referral(s): Malgorzata Nunez MD [STAFF PHYSICIAN] - 05/24/19 1:45 pm Samuel Bagley MD [Primary Care Provider] - 1 Week (Please call the office to set up appt.) Patient Instructions/Handouts: COPD (Chronic Obstructive Pulmonary Disease) (DC) Discharge Disposition: HOME SELF-CARE
--- NOTE | 2019-04-06 13:49 | P.PN ---
Subjective Progress Note Date: 04/06/19 Principal diagnosis: Acute exacerbation of chronic moderate persistent bronchial asthma This 88-year-old white male patient of Dr. Bagley, with history of chronic bronchial asthma, who presented to the hospital on 04/02/2019 with complaints of shortness of breath, persistent coughing, voice hoarseness, chest tightness. Onset of symptoms started 2 weeks ago, and became progressively worse, patient did have some mild subjective chills, but no fevers, she felt exhausted, she was 7 a lot a persistent coughing, but not bringing up much sputum. She states [place] the mall [place] 2 hours, a few days ago, she thinks he may have overdone it, she had a exacerbation of her sciatica, which was being treated on an outpatient basis, and she was also found to have evidence of bladder infection for which she was started on antibiotics. Patient is a lifetime nonsmoker, she does not use home O2, she does use albuterol nebulized treatments and a Ventolin inhaler which she has been using quite frequently in the last 2 weeks, she's been having nightly bedtime symptoms with increased coughing and shortness of breath. Does have symptoms of GERD/reflux. She did see Dr. Hammond in the remote past for her asthma, but recently has been managed by Dr. Bagley. Chest x-ray, showed minimal pulmonary fibrotic changes, worsening of interstitial pulmonary markings. Patient was found to have elevated d-dimer at 2.10, did have elevated white blood cell count of 17.6, electrolytes were within normal limits, B1 was 28 and creatinine was 1.35, BNP was 2150, troponin was negative 1. VQ scan showed intermediate probability of pulmonary embolism, venous Dopplers of lower extremities was negative for DVT. She was started on heparin drip for intermediate probability of pulmonary embolism and we were asked to see the patient in consultation for acute exacerbation of severe persistent bronchial asthma The patient is seen today 04/04/2019 in follow-up on the regular medical floor. She is awake and alert in no acute distress. She is still having some dyspnea on exertion still somewhat bronchospastic and wheezy. Loose productive cough. No hemoptysis. Blood culture reveals no growth to date. White count 7.7. Hemoglobin 12.1. She remains on DuoNeb inhalations, Pulmicort and Perforomist inhalations, IV Solu-Medrol, Singulair. Antibiotics form of ceftriaxone and azithromycin. Maintaining O2 saturations in the 90s on 3 L/m per nasal cannula. She's afebrile. Hemodynamically stable. On 04/05/2019 patient is seen in follow-up on medical surgical floor. She is awake and alert, in no acute distress, she is breathing a lot easier, less dyspneic, less wheezy, lung sounds are diminished, with some expiratory wheezes on forced exhale maneuver, she remains on oxygen, at 3 L, with a pulse ox of 95%, room air pulse ox was 88%, she is afebrile, today's labs have been re viewed, white blood cell count remains stable at 17.5, hemoglobin is 12.0, electrodes were within normal limits, and a renal profile is relatively stable with BUN of 35 and creatinine of 1.28. Blood cultures so far have shown no growth. Patient is on a combination of Rocephin and Zithromax, Pulmicort and Perforomist, DuoNeb nebulized treatments, and IV Solu-Medrol 60 mg every 6 hours. She has been ambulating and tolerating activity fairly well. On 04/06/2019 patient seen in follow-up on medical surgical floor. She continues to improve, breathing easier today, remains on supplemental oxygen, at 3 L, however room air pulse ox was 88%, patient did qualify for home oxygen, afebrile, lung sounds are diminished, with very faint end expiratory wheezes, overall left less bronchospastic. Dyspneic, she is tolerating ambulation. Today's labs have been reviewed, CBC was completed, showing a white blood cell count of 18.2, hemoglobin of 12.3. No signs are stable, patient is being discharged home today. Objective - Vital Signs Vital signs: Vital Signs Temp 98.5 F 04/06/19 05:00 Pulse 72 04/06/19 11:08 Resp 20 04/06/19 05:00 BP 170/68 04/06/19 05:00 Pulse Ox 97 04/06/19 07:22 Intake & Output 04/05/19 04/06/19 04/06/19 18:59 06:59 18:59 Intake Total 570 700 Balance 570 700 Weight 83.5 kg 79.7 kg Intake: IV 50 cefTRIAXone 1 gm In 50 Sodium Chloride 0.9% 50 ml @ 100 mls/hr IVPB Q24HR [facility] Rx#:[id number] Oral 520 700 Other: Voiding Method Toilet # Voids 3 1 # Bowel Movements 1 - Exam GENERAL EXAM: Alert, very pleasant 88-year-old white female, on 3 L of oxygen and the pulse ox of 95% comfortable in no apparent distress. HEAD: Normocephalic/atraumatic. EYES: Normal reaction of pupils, equal size. Conjunctiva pink, sclera white. NOSE: Clear with pink turbinates. THROAT: No erythema or exudates. NECK: No masses, no JVD, no thyroid enlargement, no adenopathy. CHEST: No chest wall deformity. Symmetrical expansion. LUNGS: Equal air entry with expiratory wheezes CVS: Regular rate and rhythm, normal S1 and S2, no gallops, no murmurs, no rubs ABDOMEN: Soft, nontender. No hepatosplenomegaly, normal bowel sounds, no guarding or rigidity. EXTREMITIES: No clubbing, no edema, no cyanosis, 2+ pulses and upper and lower extremities. MUSCULOSKELETAL: Muscle strength and tone normal. SPINE: No scoliosis or deformity SKIN: No rashes CENTRAL NERVOUS SYSTEM: Alert and oriented -3. No focal deficits, tone is normal in all 4 extremities. PSYCHIATRIC: Alert and oriented -3. Appropriate affect. Intact judgment and insight. - Labs CBC & Chem 7: 04/06/19 08:11 04/05/19 08:49 Labs: Abnormal Lab Results - Last 24 Hours (Table) 04/05/19 04/05/19 04/06/19 Range/Units 17:15 20:41 07:12 WBC (3.8-10.6) k/uL Neutrophils # (1.3-7.7) k/uL POC Glucose (mg/dL) 133 H 124 H 112 H (75-99) mg/dL 04/06/19 04/06/19 Range/Units 08:11 11:50 WBC 18.2 H (3.8-10.6) k/uL Neutrophils # 15.8 H (1.3-7.7) k/uL POC Glucose (mg/dL) 148 H (75-99) mg/dL Microbiology - Last 24 Hours (Table) 04/05/19 05:15 Gram Stain - Preliminary Sputum 04/02/19 15:10 Blood Culture - Preliminary Blood No Growth after 72 hours Assessment and Plan Plan: Assessment: #1. Acute exacerbation of moderate persistent bronchial asthma #2. Acute hypoxemic respiratory failure related to the above #3. Elevated d-dimer, VQ scan showed intermediate probability of pulmonary embolism, and lower extremity Dopplers were negative for DVT, doubt possibility of underlying pulmonary embolism #4. GERD/reflux #5. Recent urinary tract infection #6. Hypertension #7. History of CVA/TIA #8. Lifetime nonsmoker Plan: Patient continues to improve, tolerating ambulation, signs are stable, no acute events overnight, stable for discharge home today, and she has been approved for Symbicort, she can continue on Singulair, complete oral antibiotics, prednisone taper, cough syrup, and Claritin. We'll see the patient in the office in 7 to 10 days. I performed a history & physical examination of the patient and discussed their management with my nurse practitioner, Demetrice Rashid. I reviewed the nurse practitioner's note and agree with the documented findings and plan of care. Lung sounds are positive for diffuse wheezes throughout the lung wu. The findings and the impression was discussed with the patient. I attest to the documentation by the nurse practitioner. Time with Patient: Less than 30
== END 2019-04-06 14:04 | disposition home or self-care (01) | DRG 202 ==
LOC: EC 14:13 → 3SCARD 16:09 → 4MS4W 04-03 20:36
PROVIDERS: ADMIT Internal Medicine Geriatric Medicine; ATTEND Internal Medicine Geriatric Medicine
DX: J45.41 Moderate persistent asthma with (acute) exacerbation (principal); J96.21 Acute and chronic respiratory failure with hypoxia; K21.9 Gastro-esophageal reflux disease without esophagitis; I10 Essential (primary) hypertension; N32.89 Other specified disorders of bladder; R79.1 Abnormal coagulation profile; M54.30 Sciatica, unspecified side; N30.90 Cystitis, unspecified without hematuria; J44.9 Chronic obstructive pulmonary disease, unspecified; N32.81 Overactive bladder; E66.9 Obesity, unspecified; R11.0 Nausea; K59.00 Constipation, unspecified; Z66 Do not resuscitate; Z90.49 Acquired absence of other specified parts of digestive tract; Z90.710 Acquired absence of both cervix and uterus; Z87.01 Personal history of pneumonia (recurrent); Z91.012 Allergy to eggs; Z91.010 Allergy to peanuts; Z88.0 Allergy status to penicillin; Z91.013 Allergy to seafood; Z88.2 Allergy status to sulfonamides; Z88.8 Allergy status to other drugs, medicaments and biological substances; Z91.018 Allergy to other foods; Z79.52 Long term (current) use of systemic steroids; Z79.899 Other long term (current) drug therapy; Z87.440 Personal history of urinary (tract) infections; Z79.51 Long term (current) use of inhaled steroids; Z80.0 Family history of malignant neoplasm of digestive organs; Z82.49 Family history of ischemic heart disease and other diseases of the circulatory system; Z86.73 Personal history of transient ischemic attack (TIA), and cerebral infarction without residual deficits; Z99.81 Dependence on supplemental oxygen
CPT/HCPCS: 36415; 71046; 72110; 73502; 78582; 80048; 80053; 81001; 83735; 83880; 84484; 85025; 85379; 85610; 85730; 87040; 87070; 87077; 87086; 87186; 87205; 93005; 93970; 94640; 94644; 94760; 96361; 96365; 96366; 96374; 96375; 99284; 99291

== ENCOUNTER 2019-04-10 04:09 | Emergency (ER) | payer MEDICARE, BC ==
[2019-04-10 04:17] VITALS: BP 120/60; PULSE 64; RESP 20; TEMP 98
--- NOTE | 2019-04-10 04:34 | ED ---
Back Pain HPI - General Chief Complaint: Back Pain/Injury Stated Complaint: Back pain Time Seen by Provider: 04/10/19 04:23 Source: patient Limitations: no limitations - History of Present Illness Initial Comments: Estephanie is an 88-year-old female who presents the emergency department today for evaluation of sciatic pain down her right leg. Patient was seen and evaluated last week she was admitted to the hospital for COPD exacerbation and for pain management. Patient reports that she received IV pain medication throughout her stay and was discharged home with only 12 Brew[place] on April 06. Patient reports that she has taken all of those pain pills and has been unable to follow up with her primary care physician. She reports that she continues to have sciatic pain radiating from her right lower back down her right hip and leg. Pain has been unchanged for the past 2 weeks. Patient denies any fevers, chills she denies any weakness in her lower extremities difficulty with walking or difficulty with urinating or having bowel movements. - Related Data Home Medications Medication Instructions Recorded Confirmed Albuterol Sulfate [Ventolin HFA] 1 puff INHALATION RT-QID PRN 09/23/14 04/02/19 Oxybutynin Chloride [Oxybutynin 10 mg PO DAILY 09/23/14 04/02/19 Chloride ER] Albuterol Nebulized [Ventolin 2.5 mg INHALATION RT-Q6H PRN 03/31/19 04/02/19 Nebulized] Atenolol [Tenormin] 50 mg PO DAILY 03/31/19 04/02/19 Ergocalciferol (Vitamin D2) 50,000 unit PO Q14D 04/02/19 04/02/19 [Drisdol] Omeprazole 20 mg PO DAILY 04/02/19 04/02/19 Previous Rx's Medication Instructions Recorded HYDROcodone/APAP 5-325MG [B[place]ster 1 tab PO Q6HR PRN #12 tab 03/31/19 5-325] Budesonide-Formot 160-4.5 Mcg 2 puff INHALATION BID 30 Days #1 04/05/19 [Symbicort 160-4.5 Mcg Inhaler] inhaler Azithromycin [Zithromax] 500 mg PO DAILY #1 tab 04/06/19 Loratadine [Claritin] 10 mg PO DAILY tab 04/06/19 Montelukast [Singulair] 10 mg PO HS #30 tab 04/06/19 guaiFENesin SYRUP 100MG/5ML 200 mg PO Q6H PRN cup 04/06/19 [Robitussin] guaiFENesin [Mucinex] 600 mg PO Q12HR PRN #30 tablet.er 04/06/19 predniSONE 0 mg PO DIRECTED #30 tab 04/06/19 Allergies Allergy/AdvReac Type Severity Reaction Status Date / Time Egg Derived Allergy Rash/Hives Verified 04/10/19 04:17 gabapentin Allergy Rash/Hives Verified 04/10/19 04:17 peanut Allergy Rash/Hives Verified 04/10/19 04:17 Penicillins Allergy Rash/Hives Verified 04/10/19 04:17 shellfish derived Allergy Chest Pain Verified 04/10/19 04:17 sulfamethoxazole Allergy Rash/Hives Verified 04/10/19 04:17 [From Bactrim] tomato Allergy Rash/Hives Verified 04/10/19 04:17 trimethoprim [From Bactrim] Allergy Rash/Hives Verified 04/10/19 04:17 Review of Systems ROS Statement: Those systems with pertinent positive or pertinent negative responses have been documented in the HPI. ROS Other: All systems not noted in ROS Statement are negative. 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 Sister(s) Family Medical History: Cancer, Myocardial Infarction ([place]) Additional Family Medical History / Comment(s): Patient has 2 sisters one from pancreatic cancer at the age of 62 and one from coronary artery disease at age 64. Brother(s) Family Medical History: Cancer, Myocardial Infarction ([place]) Additional Family Medical History / Comment(s): Patient has 2 brothers and one at age 45 from coronary artery disease with massive myocardial infarction. One brother at age 89 from pancreatic cancer. Father Additional Family Medical History / Comment(s): Father at age 89 from coronary artery disease. Son(s) Additional Family Medical History / Comment(s): Patient has 2 sons and one at age 47 from scleroderma. One son is age 65 with obesity. Patient has one daughter age 68 with obesity. General Exam - General Exam Comments Initial Comments: Physical Exam GENERAL: Elderly female, pierced uncomfortable HENT: Normocephalic, Atraumatic. EYES: PERRL, EOMI PULMONARY: Unlabored respirations. Mild expiratory wheezes CARDIOVASCULAR: RRR ABDOMEN: Soft and nontender with normal bowel sounds. SKIN: Skin is clear with no lesions or rashes and otherwise unremarkable. Lidoderm patch present on the right hip : Deferred NEUROLOGIC: Patient is alert and oriented x3. Moving all extremities spontaneously MUSCULOSKELETAL: Normal extremities with adequate strength and full range of motion. No lower extremity swelling or edema. No calf tenderness. Normal strength in the bilateral lower extremities, normal flexion and extension of the knee and hip PSYCHIATRIC: Normal psychiatric evaluation. Limitations: no limitations Course Vital Signs 04/10/19 04:13 Temperature 98 F Pulse Rate 64 Respiratory 20 Rate Blood Pressure 120/60 O2 Sat by Pulse 90 L Oximetry Medical Decision Making - Medical Decision Making The patient was seen and evaluated history is obtained from patient. Patient was sciatic pain which has been bothering her for a number of days she's been evaluated and admitted to the hospital she is scheduled to follow up with her primary care physician but is out of her narcotic pain medications. At this time I'll give the patient by mouth Valium for her pain in the ER and we'll give her a final patch which should hold her over until she can see her primary care physician. Were this plan. Patient discharged home with plan to see her primary care physician as scheduled tomorrow. Disposition Clinical Impression: Sciatica, COPD (chronic obstructive pulmonary disease) Disposition: HOME SELF-CARE Condition: Stable Instructions (If sedation given, give patient instructions): Chronic Back Pain (ED) Is patient prescribed a controlled substance at d/c from ED?: No Referrals: Samuel Bagley MD [Primary Care Provider] - 1-2 days
[2019-04-10] MEDS ORDERED: DIAZEPAM 2 MG TAB PO ONE (05:00)
== END 2019-04-10 05:08 | disposition home or self-care (01) ==
LOC: EC 04:09
DX: M54.41 Lumbago with sciatica, right side (principal); J44.9 Chronic obstructive pulmonary disease, unspecified; I10 Essential (primary) hypertension; K21.9 Gastro-esophageal reflux disease without esophagitis; Z88.0 Allergy status to penicillin; Z88.2 Allergy status to sulfonamides; Z88.8 Allergy status to other drugs, medicaments and biological substances; Z91.010 Allergy to peanuts; Z91.012 Allergy to eggs; Z91.013 Allergy to seafood; Z91.018 Allergy to other foods; Z79.899 Other long term (current) drug therapy; Z86.73 Personal history of transient ischemic attack (TIA), and cerebral infarction without residual deficits; Z87.01 Personal history of pneumonia (recurrent)
CPT/HCPCS: 99283